=== PATIENT | female | born 1945 | race Caucasian/White ===

== ENCOUNTER → 2018-02-26 | Outpatient (CLI) | payer MEDICARE ==
--- NOTE | 2018-02-27 15:09 | MM ---
Reason for exam: screening (asymptomatic). Last mammogram was performed 3 years and 2 months ago. History: Patient is postmenopausal and has history of endometrial cancer at age 59. Family history of breast cancer in aunt at age 50. Physical Findings: A clinical breast exam by your physician is recommended on an annual basis and results should be correlated with mammographic findings. MG 3D Screening Mammo W/Cad Bilateral CC and MLO view(s) were taken. Prior study comparison: January 03, 2015, bilateral MG screening mammo w CAD. April 03, 2013, mammogram, performed at [facility]. The breast tissue is heterogeneously dense. This may lower the sensitivity of mammography. There is no discrete abnormality. No significant changes when compared with prior studies. ASSESSMENT: Negative, BI-RAD 1 RECOMMENDATION: Routine screening mammogram of both breasts in 1 year.
== END | disposition home or self-care (01) ==
LOC: RADMAMWWP 13:28
PROVIDERS: ATTEND Family Medicine
DX: Z12.31 Encounter for screening mammogram for malignant neoplasm of breast (principal)
CPT/HCPCS: 77063; 77067

== ENCOUNTER → 2019-03-04 | Outpatient (CLI) | payer MEDICARE ==
--- NOTE | 2019-03-04 16:56 | BD ---
EXAMINATION TYPE: Axial Bone Density DATE OF EXAM: 03/04/2019 COMPARISON: NONE CLINICAL HISTORY: Screening for osteoporosis Height: 66 Weight: 172.3 FRAX RISK QUESTIONS: Alcohol (3 or more units per day): no Family History (Parent hip fracture): no Glucocorticoids (More than 3mos): no (Ex: prednisone, prednisolone, methylprednisolone, dexamethasone, and hydrocortisone). History of Fracture in Adulthood: no Secondary Osteoporosis: 1. Type 1 Diabetes: no 2. Hyperthyroidism: no 3. Menopause before 45: no 4. Malnutrition: no 5. Chronic liver disease: no Rheumatoid Arthritis: no Current Tobacco Use: no RISK FACTORS HISTORY OF: Family History of Osteoporosis: no Active: yes Diet low in dairy products/other sources of calcium: yes Postmenopausal woman: age 49 MEDICATIONS: lithium, bupropion, omega guard, vitamins Additional History: EXAM MEASUREMENTS: Bone mineral densitometry was performed using the [employer] System. Bone mineral density as measured about the Lumbar spine is: ----- L1-L4(G/cm2): 1.499 T Score Values are as follows: ----- L2: 1.2 ----- L3: 4.0 ----- L4: 3.5 ----- L1-L4: 2.7 Bone mineral density : baseline Bone mineral density about the R hip (g/cm2): 1.036 Bone mineral density about the L hip (g/cm2): 1.097 T Score values are as follows: -----R Neck: 0.0 -----L Neck: 0.4 -----R Total: 0.7 -----L Total: 0.8 Bone mineral density : baseline IMPRESSION: Normal (Values between +1 and -1 indicate normal bone mass). Consider repeating this study in 5 year s or sooner if there is some new clinical indication. NOTE: T-SCORE=SD OF THE YOUNG ADULT MEAN.
--- NOTE | 2019-03-10 07:08 | MM ---
Reason for exam: screening (asymptomatic). Last mammogram was performed 1 year ago. History: Patient is postmenopausal and has history of endometrial cancer at age 59. Family history of breast cancer in aunt at age 50. Physical Findings: A clinical breast exam by your physician is recommended on an annual basis and results should be correlated with mammographic findings. MG 3D Screening Mammo W/Cad Bilateral CC and MLO view(s) were taken. Prior study comparison: February 26, 2018, bilateral MG 3d screening mammo w/cad. January 03, 2015, bilateral MG screening mammo w CAD. The breast tissue is heterogeneously dense. This may lower the sensitivity of mammography. No suspicious abnormality. No significant changes when compared with prior studies. ASSESSMENT: Negative, BI-RAD 1 RECOMMENDATION: Routine screening mammogram of both breasts in 1 year.
== END | disposition home or self-care (01) ==
LOC: RADMAMWWP 11:29
PROVIDERS: ATTEND Family Medicine
DX: Z12.31 Encounter for screening mammogram for malignant neoplasm of breast (principal); M89.9 Disorder of bone, unspecified
CPT/HCPCS: 77063; 77067; 77080

== ENCOUNTER → 2019-03-09 | Outpatient (CLI) | payer MEDICARE ==
--- NOTE | 2019-03-09 15:27 | MR ---
EXAMINATION TYPE: MR brain wo con DATE OF EXAM: 03/09/2019 COMPARISON: NONE HISTORY: Memory loss TECHNIQUE: Multiplanar, multisequence images of the brain and brainstem is performed without intravenous contras t. FINDINGS: Diffusion weighted images demonstrate no evidence of a recent infarct or other diffusion ab normality. There is no extra-axial fluid collection. Overall mild burden nonspecific white matter ch anges seen for the patient's age with multiple foci of T2/FLAIR hyperintensity scattered within the d eep white matter predominantly within a periventricular distribution with few juxtacortical foci seen in some infratentorial pontine lesions.. The ventricular system and cisternal spaces are normal in s ize and appearance other than slight asymmetry of size of the posterior horn of the lateral ventricle s, left greater than right. This is likely physiologic. The brain volume is age appropriate. Midline structures demonstrate normal morphology. The craniocervical junction appears within normal limits. The dural venous sinuses appear patent. Mild circumferential mucosal thickening is seen in th e right maxillary sinus and mild mucosal thickening is also present in the ethmoid sinuses. Remaining visualized paranasal sinuses and mastoid air cells are well aerated. The visualized sinuses are miguelito r and the globes are intact. IMPRESSION: 1. Symmetric supratentorial atrophy has no lobar predilection and is likely simply age related. 2. Mild burden nonspecific white matter change, given the distribution this is likely sequela of micr oangiopathy. Also there are small foci of gliosis within the christelle. 3. Mild paranasal sinus disease involving ethmoid and right maxillary sinus.
== END | disposition home or self-care (01) ==
LOC: RADMRIMAIN 11:22
PROVIDERS: ATTEND Psychiatry & Neurology Neurology
DX: G31.9 Degenerative disease of nervous system, unspecified (principal); R90.89 Other abnormal findings on diagnostic imaging of central nervous system
CPT/HCPCS: 70551

== ENCOUNTER → 2020-10-31 | Outpatient (CLI) | payer MEDICARE | END | disposition home or self-care (01) | LOC: LABWHC1 15:36 | PROVIDERS: ATTEND Family Medicine | DX: Z01.812 Encounter for preprocedural laboratory examination (principal); Z20.822 Contact with and (suspected) exposure to COVID-19 | CPT/HCPCS: U0003; C9803; U0005 ==

== ENCOUNTER → 2020-11-10 | Outpatient (CLI) | payer MEDICARE ==
--- NOTE | 2020-11-10 11:26 | US ---
EXAMINATION TYPE: US venous doppler duplex LE LT DATE OF EXAM: 11/10/2020 11:04 AM COMPARISON: NONE CLINICAL HISTORY: I80.9 PHLEBITIS AND THROMBOPHLEBITIS. Left knee pain, no h/o DVT SIDE PERFORMED: Left TECHNIQUE: The lower extremity deep venous system is examined utilizing real time linear array sonog shay with graded compression, doppler sonography and color-flow sonography. VESSELS IMAGED: Common Femoral Vein Deep Femoral Vein Greater Saphenous Vein * Femoral Vein Popliteal Vein Small Saphenous Vein * Proximal Calf Veins (* superficial vessels) Left Leg: Negative for DVT IMPRESSION: 1. No evidence of deep venous thrombosis in left lower extremity veins.
== END | disposition home or self-care (01) ==
LOC: RADUSWWP 10:30
PROVIDERS: ATTEND Orthopaedic Surgery
DX: I80.9 Phlebitis and thrombophlebitis of unspecified site (principal)

== ENCOUNTER → 2020-11-21 | Outpatient (CLI) | payer MEDICARE ==
[2020-11-21 18:50] LABS: HCT 41.5 % (37.2-46.3); HGB 13.4 g/dL (12.0-15.0); MCH 29.8 pg (27.0-32.0); MCHC 32.3 g/dL (32.0-37.0); MCV 92.2 fL (80.0-97.0); Mean Platelet Volume 9.7 fL (9.5-12.2); Platelet Count 256 X 10*3/uL (140-440); RDW 13.2 % (11.5-14.5); WBC 7.92 X 10*3/uL (4.50-10.00)
== END | disposition home or self-care (01) ==
LOC: LABWHC1 10:12
PROVIDERS: ATTEND Orthopaedic Surgery
DX: Z01.812 Encounter for preprocedural laboratory examination (principal); M95.8 Other specified acquired deformities of musculoskeletal system; M17.12 Unilateral primary osteoarthritis, left knee
CPT/HCPCS: 36415; 85027; 87070

== ENCOUNTER → 2020-12-02 | Outpatient (CLI) | payer MEDICARE ==
--- NOTE | 2020-12-06 09:32 | MM ---
Reason for exam: screening (asymptomatic). Last mammogram was performed 1 year and 9 months ago. History: Patient is postmenopausal and has history of endometrial cancer at age 59. Family history of breast cancer in aunt at age 50. Physical Findings: A clinical breast exam by your physician is recommended on an annual basis and results should be correlated with mammographic findings. MG 3D Screening Mammo W/Cad Bilateral CC and MLO view(s) were taken. Prior study comparison: March 04, 2019, bilateral MG 3d screening mammo w/cad. February 26, 2018, bilateral MG 3d screening mammo w/cad. The breast tissue is heterogeneously dense. This may lower the sensitivity of mammography. ASSESSMENT: Benign, BI-RAD 2 RECOMMENDATION: Routine screening mammogram of both breasts in 1 year.
== END | disposition home or self-care (01) ==
LOC: RADMAMWWP 10:40
PROVIDERS: ATTEND Family Medicine
DX: Z12.31 Encounter for screening mammogram for malignant neoplasm of breast (principal); Z78.0 Asymptomatic menopausal state; Z80.3 Family history of malignant neoplasm of breast
CPT/HCPCS: 77063; 77067

== ENCOUNTER → 2020-12-02 | Outpatient (CLI) | payer MEDICARE ==
[~2020-12-02] MED LIST: REGADENOSON 0.4 MG/5 ML SYRINGE IV PRN
--- NOTE | 2020-12-02 11:25 | P.STRESS ---
- Stress Test Note Stress Test Results/Findings: Exam Performed: NM stress lexiscan cardiolite Exam Date: 12/02/20 Reason for Exam: Chest Pain Height: 5 ft 6 in Weight: 76.204 kg Protocol: Lexiscan Stage: na Duration of Exercise: na Resting Heart Rate: 56 Resting Blood Pressure: 142/81 Maximum Achieved Heart Rate: 92 Maximum Achieved Blood Pressure: 143/75 85% PMHR: 122 100% PMHR: 144 METS: na Technologist Comment: Stress Test Results/Findings: At baseline EKG showed normal sinus rhythm, normal axis, no significant ST or T wave abnormalities. Patient recieved IV infusion of Lexiscan 0.4mg and at peak infusion EKG showed no significant change from baseline. Conclusions: 1. Normal EKG response to Lexiscan infusion 2. Nuclear imaging to be reported separately.
--- NOTE | 2020-12-02 11:41 | NM ---
EXAMINATION TYPE: NM stress lexiscan cardiolite DATE OF EXAM: 12/02/2020 COMPARISON: NONE HISTORY: Abnormal EKG, R 94.31 TECHNIQUE: After the intravenous administration of 9.44 mCi Tc 99m Sestamibi - Cardiolite resting SP ECT images acquired 79 minutes post injection. The patient received 0.4mg Lexiscan, 24.3 mCi Tc 99m Sestamibi - Stress images obtained [address] injection FINDINGS: Review of stress and rest SPECT images demonstrates decreased uptake along the anteroapical left vent ricle extending towards the septum on stress as compared to rest images. Gated analysis shows normal wall motion with an estimated left ventricular ejection fraction of 67 %. IMPRESSION: Pharmacologically induced left ventricular myocardial ischemia, consider echocardiographic evaluation of elevated ejection fraction. A Yellow level critical message alert has been initiated for Rabia Ponce MD via the [employer] Critical Results System on 12/02/2020 11:39 AM. This message alert has been sent to Rabia Monson MD via the preferences provided by the clinician for the receipt of Radiology Critical Findings . Message ID [id number].
== END | disposition home or self-care (01) ==
LOC: RADNMMAIN 07:42
PROVIDERS: ATTEND Family Medicine
DX: I25.9 Chronic ischemic heart disease, unspecified (principal); R07.9 Chest pain, unspecified
CPT/HCPCS: 93017; 78452; A9500; J2785

== ENCOUNTER → 2020-12-08 | Outpatient (CLI) | payer MEDICARE ==
[2020-12-08 11:24] LABS: HCT 44.1 % (34.0-46.0); HGB 14.1 gm/dL (11.4-16.0); MCV 90.8 fL (80.0-100.0); Mean Platelet Volume 6.8; Platelet Count 221 k/uL (150-450); RBC 4.85 m/uL (3.80-5.40); RDW 13.6 % (11.5-15.5); WBC 7.4 k/uL (3.8-10.6)
[2020-12-08 11:49] LABS: Potassium 4.8 mmol/L (3.5-5.1)
== END | disposition home or self-care (01) ==
LOC: LABPAT 10:18
PROVIDERS: ATTEND Internal Medicine Cardiovascular Disease
DX: Z01.812 Encounter for preprocedural laboratory examination (principal); R93.1 Abnormal findings on diagnostic imaging of heart and coronary circulation
CPT/HCPCS: 36415; 80051; 82565; 84520; 85027

== ENCOUNTER 2020-12-09 | Day surgery (SDC) | payer MEDICARE | END 2020-12-09 13:57 | disposition home or self-care (01) | CPT/HCPCS: 93458; 93567; 87635; C1769 ×3; C1894; J2250; J2001; J3010; Q9967 ==

== ENCOUNTER → 2021-04-05 | Outpatient (CLI) | payer MEDICARE ==
[2021-04-05 18:53] LABS: Appearance,BF Hazy; Color,BF Yellow; Nucleated Cells, Body Fluid 20 /uL; RBC, Body Fluid 4180 /uL
[2021-04-06 01:37] LABS: HCT 42.2 % (37.2-46.3); HGB 13.5 g/dL (12.0-15.0); MCH 29.2 pg (27.0-32.0); MCV 91.1 fL (80.0-97.0); Mean Platelet Volume 10.2 fL (9.5-12.2); Platelet Count 268 X 10*3/uL (140-440); RBC 4.63 X 10*6/uL (4.10-5.20); RDW 13.4 % (11.5-14.5); WBC 10.39 X 10*3/uL (4.50-10.00)
[2021-04-06 03:30] LABS: Erythrocyte Sedimentation Rate 7 mm/Hr (0-30)
[2021-04-06 06:59] LABS: Streptolysin O Ab(ASO) 79 IU/L (0-200)
[2021-04-06 08:25] LABS: C Reactive Protein <0.30 mg/dL (0.00-0.80); Rheumatoid Factor, Qnt <10 IU/mL (0-15)
[2021-04-06 11:25] LABS: HLA B27 NEGATIVE
== END | disposition home or self-care (01) ==
LOC: LABWHC1 16:22
PROVIDERS: ATTEND Physician Assistant
DX: Z47.1 Aftercare following joint replacement surgery (principal); S76.112D Strain of left quadriceps muscle, fascia and tendon, subsequent encounter; M25.562 Pain in left knee; X58.XXXD Exposure to other specified factors, subsequent encounter; Z96.652 Presence of left artificial knee joint
CPT/HCPCS: 36415; 83520; 84443; 85027; 85652; 86038; 86060; 86140; 86431; 86618; 86812; 87070; 87075; 87205; 89050; 89060

== ENCOUNTER → 2021-10-12 | Outpatient (CLI) | payer MEDICARE ==
--- NOTE | 2021-10-12 12:19 | CONS ---
CONSULTATION DATE OF SERVICE: 10/12/2021 76-year-old lady has been evaluated in [facility] for difficulties falling asleep and multiple awakenings from sleep. HISTORY OF PRESENT ILLNESS SLEEP-WAKE EVALUATION: SLEEP SCHEDULE: Patient's usual sleep schedule from 11 to 11:30 p.m. until 7/9:00 am. She has difficulties falling asleep. Tried different medications for that, but not very successful and during the night, she wakes up. In the middle of the night, has 4 episodes of nocturia. After awakenings, has difficulties initiating sleep again. No TV in bedroom. She usually sleeps on the side position. According to her family, she snores. In the morning, she wakes up tired. She has difficulties to pay attention. Browning Sleepiness Scale is 6. She does not take any naps. No history of hypnagogic hallucinations, sleep paralysis or cataplexy. PAST MEDICAL HISTORY: Positive for depression. PAST SURGICAL HISTORY: Hysterectomy, surgery for rupture of ovary. CURRENT MEDICATIONS: Gabapentin 100 mg once a day, Bandon 300 mg twice a day, Meloxicam 15 mg once a day. Temazepam. FAMILY HISTORY: Hypertension, sleep apnea, thyroid problems. REVIEW OF SYSTEMS: Difficulty initiating sleep, multiple awakenings from sleep with difficulties sleep. PHYSICAL EXAMINATION: GENERAL: lady without distress. BP 131/77, HR 62, RR 16. Height 5 feet 5 inches 3/4, weight 159.6, temperature 97.1, oxygen saturation at room air 99%. Oropharynx: Low position of soft palate, Mallampati 3-4. NECK 14-1/2 inch in circumference. Neck: Supple, no JVD. Thyroid is not palpable. LUNGS: Clear to percussion and to auscultation. Good air exchange. No wheezing or rhonchi. HEART: S1, S2 regular. No murmurs, gallops, or rubs. ABDOMEN: Soft and nontender. Bowel sounds are present. No organomegaly appreciated. EXTREMITIES: No clubbing or cyanosis. MARKET DEVELOPMENT MANAGER: Awake, alert, and oriented X3. Cranial nerves 2 to 7 intact. There is no fasciculation or atrophy. noted. No focal deficits observed. IMPRESSION: 1. Snoring, multiple awakenings from sleep, low position of soft palate, Mallampati 3- 4. Possible obstructive sleep apnea-hypopnea syndrome. 2. Insomnia, possibly psychophysiological, could be secondary to depression. 3. Possibly periodic limb movements during the sleep. 4. Depression. 5. Status post hysterectomy. 6. Status post surgery for rupture of ovary. PLAN: 1. I discussed with the patient psychological techniques for treatment of insomnia including stimulus control, paradoxical intention, worry time, no watching clock in bedroom. The patient promised to follow recommendations. 2. Polysomnogram for evaluation of patient breathing during sleep and also to check for possibly leg movements. 3. Sleep hygiene regular time in bed for 7.5 hours. 4. Precautions related to driving. No driving if feeling sleepiness. 5. Following plan after reviewing results of sleep study. Thank you very much for referring this patient for consultation. Sincerely, Harvey Mcintosh MD, PhD, FAASM Diplomat of [place] [employer] Sleep Medicine Board of [place] [employer] Back Strip Machine Operator of [facility] [place] MMODL / FAISALN: [id number] /
== END ==
LOC: SLEEP 10:51
PROVIDERS: ATTEND Internal Medicine
DX: G47.00 Insomnia, unspecified (principal); R06.83 Snoring; F32.A Depression, unspecified; Z90.710 Acquired absence of both cervix and uterus; Z98.890 Other specified postprocedural states
CPT/HCPCS: 99211

== ENCOUNTER → 2021-12-12 | Outpatient (CLI) | payer MEDICARE ==
--- NOTE | 2021-12-12 17:44 | BD ---
EXAMINATION TYPE: Axial Bone Density DATE OF EXAM: 12/12/2021 CLINICAL HISTORY: 76 years year old Female. ICD-10 CODE: Z78.0 ASYMPTOMATIC MENOPAUSAL STATE Height: 5 FT 5 IN Weight: 161 FRAX RISK QUESTIONS: Alcohol (3 or more units per day): NO Family History (Parent hip fracture): NO Glucocorticoids (More than 3mos): NO (Ex: prednisone, prednisolone, methylprednisolone, dexamethasone, and hydrocortisone). History of Fracture in Adulthood: NO Secondary Osteoporosis: 1. Type 1 Diabetes: NO 2. Hyperthyroidism: NO 3. Menopause before 45: NO 4. Malnutrition: NO 5. Chronic liver disease: NO Rheumatoid Arthritis: NO Current Tobacco Use: NO RISK FACTORS HISTORY OF: Surgery to Spine/Hip(right/left)/Wrist (right/left): NO Family History of Osteoporosis: NO Active: YES Diet low in dairy products/other sources of calcium: NO Postmenopausal woman: YES Take estrogen and/or progesterone medications: NO Lost more than 2 inches in height since high school: NO Frequent falls: NO Poor Health: GOOD Hyperparathyroidism: NO Adrenal Insufficiency: NO MEDICATIONS: Additional Medications: LITHIUM, DIAZEPAM ,GABAPENTAN , Additional History: EXAM MEASUREMENTS: Bone mineral densitometry was performed using the [employer] System. Bone mineral density as measured about the Lumbar spine is: ----- L1-L4(G/cm2): 1.499 T Score Values are as follows: ----- L1: 1.2 ----- L2: 2.4 ----- L3: 3.8 ----- L4: 3.2 ----- L1-L4: 2.7 Bone mineral density has: INCREASED 1.7 % since study of: 2019 Bone mineral density about the R hip (g/cm2): 1.021 Bone mineral density about the L hip (g/cm2): 1.051 T Score values are as follows: -----R Neck: -0.1 -----L Neck: 0.1 -----R Total: 0.7 -----L Total: 0.5 Bone mineral density has: DECREASED -2.1 % since study of: 2019 FRAX%s: The graph provided illustrates a 8.4 % chance for a major osteoporotic fx and a 0.9 % chance for the hips probability for fx in 10 years time. IMPRESSION: Normal (Values between +1 and -1 indicate normal bone mass). Consider repeating this study in 5 year s or sooner if there is some new clinical indication. NOTE: T-SCORE=SD OF THE YOUNG ADULT MEAN.
--- NOTE | 2021-12-13 14:53 | MM ---
Reason for Exam: Screening (asymptomatic). Last mammogram was performed 1 year(s) and 1 month(s) ago. Patient History: Menarche at age 12. First Full-Term at age 24. Left ovary removed at age 59. Right ovary removed at age 59. Hysterectomy at age 59. Postmenopausal. Endometrial cancer, age 59. Sister had breast cancer, age 50. Risk Values: Kelsey 5 year model risk: 3.4%. NCI Lifetime model risk: 6.5%. Prior Study Comparison: 02/26/2018 Bilateral Screening Mammogram, [facility]. 03/04/2019 Bilateral Screening Mammogram, [facility]. 12/02/2020 Bilateral Screening Mammogram, [facility]. Tissue Density: The breast tissue is heterogeneously dense. This may lower the sensitivity of mammography. Findings: Analyzed By CAD. Benign-appearing bilateral axillary lymph nodes are redemonstrated. There is no suspicious group of microcalcifications or new suspicious mass in either breast. Overall Assessment: Negative, BI-RAD 1 Management: Screening Mammogram of both breasts in 1 year. A clinical breast exam by your physician is recommended on an annual basis and results should be correlated with mammographic findings. Electronically signed and approved by: Timi Tinajero M.D.
== END | disposition home or self-care (01) ==
LOC: RADMAMWWP 16:05
PROVIDERS: ATTEND Family Medicine
DX: Z12.31 Encounter for screening mammogram for malignant neoplasm of breast (principal); Z78.0 Asymptomatic menopausal state; Z80.3 Family history of malignant neoplasm of breast
CPT/HCPCS: 77063; 77067; 77080

== ENCOUNTER 2022-02-19 14:34 | Observation (INO) | payer MEDICARE ==
--- NOTE | 2022-02-19 15:12 | ED ---
General Adult HPI - General Chief complaint: Neuro Symptoms/Deficit Stated complaint: PCP Sent, Possible stroke Time Seen by Provider: 02/19/22 15:05 Source: patient Mode of arrival: ambulatory Limitations: no limitations - History of Present Illness Initial comments: Dictation was produced using [employer] dictation software. please excuse any grammatical, word or spelling errors. Chief Complaint: 76-year-old female presents emergency Department for slurred speech History of Present Illness: 76-year-old female she presents to the emergency department for slurred speech. Patient states that she agrees. Her history of present illness obtained from states that she woke up normal at 9 AM. At 10:00 PM patient is noted have slurred speech. She was able to ride her bike to her dentist office. Dentist office called states that patient has been behaving strangely also displaying signs of stroke at the office. Since this morning patient has been having intermittent bouts of slurred speech. She has not been noted to be weak or insensate in any of her extremities. Patient has no history of stroke. She has no past medical history. Patient denies any numbness distally paresthesias to the arms or legs. The ROS documented in this emergency department record has been reviewed and confirmed by me. Those systems with pertinent positive or negative responses have been documented in the HPI. All other systems are other negative and/or noncontributory. PHYSICAL EXAM: General Impression: Alert and oriented x3, not in acute distress HEENT: Normocephalic atraumatic, extra-ocular movements intact, pupils equal and reactive to light bilaterally, mucous membranes moist. Cardiovascular: Heart regular rate and rhythm Chest: Able to complete full sentences, no retractions, no tachypnea Abdomen: abdomen soft, non-tender, non-distended, no organomegaly Musculoskeletal: Pulses present and equal in all extremities, no peripheral edema Motor: no focal deficits noted Neurological: CN II-XII grossly intact, no focal motor or sensory deficits noted, NIH 0 Skin: Intact with no visualized rashes Psych: Normal affect and mood ED course: 76-year-old female presenting to the emergency department with clinical presentation consistent for transient ischemic attack. Patient's NIH at bedside is 0.. Vital signs upon arrival are within acceptable limits. Laboratory evaluation obtained. CBC, coag panel, log panel is within acceptable limits. Computed tomography scan of brain is unremarkable. Patient given dose of aspirin. Patient be admitted to floor with consultation to neurology. Patient admitted to Dr. Garza. EKG interpretation: Ventricular rate 64, sinus rhythm,. Interval to 10, Q 70, QTc 385. No TX prolongation, no QTC prolongation, no ST or T-wave changes noted. No old EKG for comparison. Overall, this EKG is unremarkable - Related Data Home Medications Medication Instructions Recorded Confirmed Beclomethasone Dip 80 Mcg/Puff 1 puff INHALATION DAILY PRN 12/08/20 12/08/20 [Qvar 80 mcg] Calcium Carbonate [Calcium] 600 mg PO DAILY 12/08/20 12/09/20 Cannabidiol (Cbd) [Epidiolex] 0 mg PO DAILY 12/08/20 12/09/20 [place] Carbonate 300 mg PO BID 12/08/20 12/09/20 [place]-3 Fatty Acids [Florence-3] 1,000 mg PO DAILY 12/08/20 12/09/20 Vitamin B Complex 1 each PO DAILY 12/08/20 12/09/20 Allergies Allergy/AdvReac Type Severity Reaction Status Date / Time No Known Allergies Allergy Verified 02/19/22 15:00 Review of Systems ROS Statement: Those systems with pertinent positive or pertinent negative responses have been documented in the HPI. ROS Other: All systems not noted in ROS Statement are negative. Past Medical History Past Medical History: Asthma History of Any Multi-Drug Resistant Organisms: None Reported Past Surgical History: Tubal Ligation Additional Past Surgical History / Comment(s): ovary Past Psychological History: Bipolar Smoking Status: Never smoker Past Alcohol Use History: None Reported Past Drug Use History: None Reported General Exam Limitations: no limitations Course Vital Signs 02/19/22 14:55 Temperature 98.6 F Pulse Rate 65 Respiratory 16 Rate Blood Pressure 129/76 O2 Sat by Pulse 98 Oximetry Medical Decision Making - Lab Data Result diagrams: 02/19/22 15:13 02/19/22 15:13 Lab Results 02/19/22 02/19/22 02/19/22 Range/Units 15:13 15:13 15:13 WBC 8.5 (3.8-10.6) k/uL RBC 4.45 (3.80-5.40) m/uL Hgb 13.5 (11.4-16.0) gm/dL Hct 41.3 (34.0-46.0) % MCV 92.9 (80.0-100.0) fL MCH 30.4 (25.0-35.0) pg MCHC 32.7 (31.0-37.0) g/dL RDW 13.2 (11.5-15.5) % Plt Count 225 (150-450) k/uL MPV 7.3 Neutrophils % 71 % Lymphocytes % 19 % Monocytes % 6 % Eosinophils % 3 % Basophils % 1 % Neutrophils # 6.0 (1.3-7.7) k/uL Lymphocytes # 1.6 (1.0-4.8) k/uL Monocytes # 0.5 (0-1.0) k/uL Eosinophils # 0.3 (0-0.7) k/uL Basophils # 0.0 (0-0.2) k/uL PT 10.3 (9.0-12.0) sec INR 0.9 (<1.2) APTT 24.7 (22.0-30.0) sec Sodium 137 (137-145) mmol/L Potassium 4.1 (3.5-5.1) mmol/L Chloride 104 (98-107) mmol/L Carbon Dioxide 21 L (22-30) mmol/L Anion Gap 12 mmol/L BUN 18 H (7-17) mg/dL Creatinine 0.86 (0.52-1.04) mg/dL Est GFR (CKD-EPI)AfAm 76 (>60 ml/min/1.73 sqM) Est GFR (CKD-EPI)NonAf 66 (>60 ml/min/1.73 sqM) Glucose 152 H (74-99) mg/dL Calcium 9.7 (8.4-10.2) mg/dL Total Bilirubin 0.4 (0.2-1.3) mg/dL AST 27 (14-36) U/L ALT 25 (4-34) U/L Alkaline Phosphatase 74 (38-126) U/L Total Protein 6.4 (6.3-8.2) g/dL Albumin 4.4 (3.5-5.0) g/dL Disposition Clinical Impression: TIA (transient ischemic attack) Disposition: ADMITTED IP TO THIS HOSP Condition: Fair Referrals: Rabia Ponce MD [Primary Care Provider] - 1-2 days Decision Time: 16:43
[2022-02-19 15:25] LABS: Basophils % (A) 1 %; Eosinophils # (A) 0.3 k/uL (0-0.7); Eosinophils % (A) 3 %; HCT 41.3 % (34.0-46.0); HGB 13.5 gm/dL (11.4-16.0); Lymphocytes # (A) 1.6 k/uL (1.0-4.8); Lymphocytes % (A) 19 %; MCH 30.4 pg (25.0-35.0); MCHC 32.7 g/dL (31.0-37.0); MCV 92.9 fL (80.0-100.0); Mean Platelet Volume 7.3; Monocytes # (A) 0.5 k/uL (0-1.0); Monocytes % (A) 6 %; Neutrophils % (A) 71 %; Platelet Count 225 k/uL (150-450); RBC 4.45 m/uL (3.80-5.40); RDW 13.2 % (11.5-15.5); WBC 8.5 k/uL (3.8-10.6)
[2022-02-19 15:46] LABS: INR 0.9 (<1.2); Partial Thromboplastin Time 24.7 sec (22.0-30.0); Prothrombin Time 10.3 sec (9.0-12.0)
--- NOTE | 2022-02-19 15:46 | CT ---
EXAMINATION TYPE: CT brain wo con DATE OF EXAM: 02/19/2022 COMPARISON: None HISTORY: weakness, loss of balance, slurred speech CT DLP: 1153.4 mGycm Automated exposure control for dose reduction was used. FINDINGS: Moderate generalized degenerative change with faint low-attenuation white matter which is not changes of chronic sinusitis are noted. Craniocervical junction is maintained. Orbits are symmetric. Partial ly empty sella measures. No evidence of acute hemorrhage or mass effect. No midline shift. IMPRESSION: DEGENERATIVE AND NONSPECIFIC WHITE MATTER CHANGE WITH NO DIAGNOSTIC EVIDENCE OF ACUTE HEMORRHAGE OR M ASS EFFECT. IF CONCERN FOR ACUTE ISCHEMIA CONSIDER FOLLOW-UP MRI.
[2022-02-19 16:10] LABS: Albumin 4.4 g/dL (3.5-5.0); Calcium 9.7 mg/dL (8.4-10.2); Potassium 4.1 mmol/L (3.5-5.1); Total Bilirubin 0.4 mg/dL (0.2-1.3); Total Protein 6.4 g/dL (6.3-8.2)
[2022-02-19] MEDS ORDERED: ASPIRIN 81 MG PO STA (16:13)
[2022-02-19] MEDS: SODIUM CHLORIDE 0.9% 1,000 ML IV SCH (18:01)
[2022-02-19] MEDS: LITHIUM CARBONATE 300 MG CAP PO SCH (20:44)
[2022-02-19] MEDS: GABAPENTIN 300 MG CAP PO SCH (20:44)
[2022-02-19] MEDS: TEMAZEPAM 30 MG CAP PO SCH (22:56)
[2022-02-20] MEDS ORDERED: ACETAMINOPHEN TAB 325 MG TAB PO STA (06:08)
[2022-02-20] MEDS ORDERED: ACETAMINOPHEN TAB 325 MG TAB PO PRN (06:08)
[2022-02-20] MEDS: ASPIRIN 81 MG PO SCH (09:16)
[2022-02-20] MEDS: CLOPIDOGREL 75 MG TAB PO SCH (09:16)
[2022-02-20 09:17] LABS: Chol/HDL Ratio 1.94 Ratio; LDL Cholesterol,Calculated 30.5 mg/dL (0.0-131.0)
--- NOTE | 2022-02-20 09:24 | P.CNNES ---
History of Present Illness Consult date: 02/20/22 Requesting physician: Tree Garduno Reason for Consult: TIA History of Present Illness: This is a 76-year-old woman who presented to the emergency department on 02/19/2022 for slurred speech. Patient woke up around 9 AM on 02/19/2022 and the was at normal state but are round 10 AM patient is noted to have some slurre d speech but did not make much of it. The patient she rode her bike to her dentist office and he felt that the patient felt off. While riding the bike she was swirling side to side on bike and felt was due to the books she had (which she wanted to return to library). As result she threw the books on the floor. She continue riding on her bike and did not know how she got to her dentist office. She felt very off and not herself. She denies any focal weakness, numbness, visual disturbance. Per ED team, her dentist felt she was displaying signs of stroke at the office. She denies of any recent fevers, sick contacts. Denies of headache but feels her head continues to be foggy. She denies of any further slurring of speech. She denies of any urinary or bowel incontinence or tongue bite. Denies of any jerking of extremities that was notified. Denies history of stroke or seizures. She is not on aspirin or any other antiplatelets or anticoagulation. She socially drinks alcohol. Otherwise denies tobacco use or illicit drug use. Some other workup in our ED facility consisted of: CT head is unremarkable. It's reported as degenerative and nonspecific white matter changes with no diagnostic evidence of acute hemorrhagic or mass effect. Of concern for acute ischemia consider follow-up MRI. I personally reviewed the CT head and I agree that there is no acute or subacute ischemia and there is no typical hemorrhage. NIH stroke scale in the ED was 0. CBC with differential is unremarkable Initial serum glucose is 152. [place] is 0.8 which is considered therapeutic range No IV TPA since the symptoms resolved on presentation. And the risk outweighed the benefits. Review of Systems Review of system: The 12 point system was reviewed and apparent positive and negative per HPI. Past Medical History Past Medical History: Asthma History of Any Multi-Drug Resistant Organisms: None Reported Past Surgical History: Tubal Ligation Additional Past Surgical History / Comment(s): ovary Past Psychological History: Bipolar Smoking Status: Never smoker Past Alcohol Use History: None Reported Past Drug Use History: None Reported Medications and Allergies Home Medications Medication Instructions Recorded Confirmed Type [place] Carbonate 300 mg PO BID 12/08/20 02/19/22 History Amoxicillin 2,000 mg PO ONCE PRN 02/19/22 02/19/22 History Cariprazine HCl [Vraylar] 1.5 mg PO DAILY 02/19/22 02/19/22 History Gabapentin 300 mg PO HS 02/19/22 02/19/22 History Temazepam [Restoril] 30 mg PO HS 02/19/22 02/19/22 History Allergies Allergy/AdvReac Type Severity Reaction Status Date / Time No Known Allergies Allergy Verified 02/19/22 17:26 Physical Examination - Vital Signs Vital Signs: Vital Signs Temp Pulse Pulse Resp BP BP Pulse Ox 02/20/22 01:27 97.6 F 68 18 120/84 98 02/19/22 22:00 97.9 F 59 L 15 137/74 97 02/19/22 21:00 58 L 16 133/72 97 02/19/22 18:15 52 L 18 143/77 97 02/19/22 17:00 50 L 16 143/75 97 02/19/22 16:15 51 L 16 139/81 97 02/19/22 16:00 56 L 20 125/74 98 02/19/22 15:45 54 L 24 140/78 98 02/19/22 15:30 55 L 20 141/72 99 02/19/22 15:16 59 L 20 123/90 99 02/19/22 14:55 98.6 F 65 16 129/76 98 Intake and Output 02/19/22 02/20/22 02/20/22 22:59 06:59 14:59 Other: # Voids 2 GENERAL: The patient is lying in bed and is not in acute distress. CHEST: The heart rate is regular rate rhythm. No murmurs to auscultation. No carotid bruit bilaterally. LUNG: Clear to auscultation bilaterally no wheezing noted throughout. Not labored breathing. ABDOMEN/GI: Bowel sounds present in all 4 quadrants. No tenderness to palpation throughout. NEUROLOGICAL: Higher mental function: The patient is awake, alert, oriented to self, place and time. Patient is following commands. No aphasia and no neglect. Cranial nerves: The pupils are round, equal and reactive to light and accommodation. Visual leija are full to confrontation throughout. Extraocular movement is intact no nystagmus is noted. Facial sensation is normal to touch throughout. The facial strength is normal throughout. Hearing is decreased moderately bilaterally to hand rub (does not have hearing aids). Tongue is midline and moved [id number] without any difficulty. No dysarthria is noted. Shoulder shrug is normal bilaterally. Motor: The strength is 5 over 5 throughout. Normal tone and bulk. Cerebellum: Normal finger to nose heel to amaya bilaterally. Sensation: Sensation is normal to touch throughout. Reflexes (right/left): 2+ throughout. Plantars are downgoing bilaterally. Results - Laboratory Findings CBC and BMP: 02/19/22 15:13 02/19/22 15:13 Abnormal Lab Findings: Abnormal Labs 02/19/22 15:13 Carbon Dioxide 21 L BUN 18 H Glucose 152 H Assessment and Plan Assessment: Acute transient dysarthria, confusion seems probable due to transient ischemic attack. Transient encephalopathy seems probable due to TIA. From history did not seem seizure but cannot exclude. Bipolar Plan: I ordered MRI Brain w/ and w/o, 2-D echo, carotid duplex, TSH, hemoglobin A1c. Ordered routine EEG. I will not start the patient on seizure medications unless there is epileptiform discharges or seizure on the EEG. Ordered COVID-19 PCR. Lipid panel is ordered and pending. Patient was given aspirin 324 mg once in the ED. I start the patient on aspirin 81 and Plavix 75 for 21 days and after 21 days stop Plavix but continue aspirin indefinitely and I started the patient on Lipitor 20 mg daily at bedtime for secondary stroke prophylaxis. Continue neuro checks. Continue cardiac monitoring PT OT and FLOOR ATTENDANT are consulted We'll defer the rest of the medical management to primary team. For DVT prophylaxis start the patient on subcu heparin 5000 units every 8 hours The plan is discussed with the patient. Thank you for the consultation. Monster Reza M.D. Hospitalist Time with Patient: Greater than 30
--- NOTE | 2022-02-20 10:09 | US ---
EXAMINATION TYPE: US carotid duplex BILAT DATE OF EXAM: 02/20/2022 COMPARISON: NONE CLINICAL HISTORY: stroke. Episode of slurred speech, disorientation, imbalance. TECHNIQUE: Carotid duplex ultrasound examination. Indirect Doppler criteria was utilized. FINDINGS: EXAM MEASUREMENTS: RIGHT: Peak Systolic Velocity (PSV) cm/sec ----- Right CCA: 72.6 ----- Right ICA: 63.7 ----- Right ECA: 60.1 ICA/CCA ratio: 0.9 RIGHT: End Diastole cm/sec ----- Right CCA: 15.0 ----- Right ICA: 20.8 ----- Right ECA: 3.0 LEFT: Peak Systolic Velocity (PSV) cm/sec ----- Left CCA: 70.2 ----- Left ICA: 56.4 ----- Left ECA: 50.3 ICA/CCA ratio: 0.8 LEFT: End Diastole cm/sec ----- Left CCA: 16.2 ----- Left ICA: 14.8 ----- Left ECA: 4.2 VERTEBRALS (direction of flow): Right Vertebral: Antegrade Left Vertebral: Antegrade Rhythm: Normal SIGN ERECTOR NOTES: No significant stenosis seen. No elevated velocities IMPRESSION: No significant hemodynamic stenosis as visualized Criteria for Assigning % of Stenosis / Diameter reduction (Estimation based on the indirect measurements of the internal carotid artery velocities (ICA PSV). 1. Normal (no stenosis)=ICA PSV < 125 cm/s: ratio < 2.0: ICA EDV<40 cm/s. 2. Less than 50% stenosis=ICA PSV < 125 cm/s: ratio < 2.0: ICA EDV<40 cm/s. 3. 50 to 69% stenosis=ICA PSV of 125 to 230 cm/s: ration 2.0 ? 4.0: ICA EDV 40-100 cm/s. 4. Greater than 70% stenosis to near occlusion= ICA PSV > 230 cm/s: ratio > 4.0: ICA EDV > 100 cm/s. 5. Near occlusion= ICA PSV velocities may be low or undetectable: variable ratio and ICA EDV. 6. Total occlusion=unable to detect flow.
[2022-02-20] MEDS: LITHIUM CARBONATE 300 MG CAP PO SCH ×2 (11:31→21:58)
[2022-02-20] MEDS: SODIUM CHLORIDE 0.9% 1,000 ML IV SCH (16:05)
[2022-02-20] MEDS: HEPARIN SODIUM,PORCINE/PF 5,000 UNIT/0.5 ML SYRINGE SQ SCH (16:05)
--- NOTE | 2022-02-20 17:27 | P.HPIM ---
History of Present Illness H&P Date: 02/20/22 Karis Mueller, is a 76-year-old female who presented to [facility] emergency room with a chief complaint of confusion and slurred speech Patient stated that she left her home riding on her bicycle she went to her dentist, after her dentist appointment the staff noticed that she was not feeling well they called her to come and pick her up, he noticed that she was slurring her speech and that she was confused he took her to Dr. Ponce's office who advised them to go to emergency room. She was evaluated in the emergency room vital examination on presentation revealed a temperature of 98.6 pulse 65 respiration 16 blood pressure 129/76 pulse ox 98% on room air Laboratory data reveals a white blood count of 8.5 hemoglobin 13.5 platelet count 225 sodium 137 potassium 4.1 chloride 104 CO2 21 BUN 18 creatinine 0.86 A1c 5.6 Testing in the emergency room revealed EKG revealed sinus rhythm with sinus arrhythmia and first-degree AV block computed tomography scan done in the emergency room without contrast revealed nonspecific white matter changes without diagnostic evidence of acute hemorrhage or mass affect. Patient was admitted to medical floor for further evaluation and treatment, neurology consultation was requested Patient also stated that she was having episodes of chest pain on and off for the last few weeks. Past Medical History Past Medical History: Asthma History of Any Multi-Drug Resistant Organisms: None Reported Past Surgical History: Tubal Ligation Additional Past Surgical History / Comment(s): ovary Past Psychological History: Bipolar Smoking Status: Never smoker Past Alcohol Use History: None Reported Past Drug Use History: None Reported Medications and Allergies Home Medications Medication Instructions Recorded Confirmed Type [place] Carbonate 300 mg PO BID 12/08/20 02/19/22 History Amoxicillin 2,000 mg PO ONCE PRN 02/19/22 02/19/22 History Cariprazine HCl [Vraylar] 1.5 mg PO DAILY 02/19/22 02/19/22 History Gabapentin 300 mg PO HS 02/19/22 02/19/22 History Temazepam [Restoril] 30 mg PO HS 02/19/22 02/19/22 History Allergies Allergy/AdvReac Type Severity Reaction Status Date / Time No Known Allergies Allergy Verified 02/19/22 17:26 Physical Exam Vitals: Vital Signs Temp Pulse Pulse Resp BP BP Pulse Ox 02/20/22 08:36 96 02/20/22 07:00 97.8 F 60 16 134/84 98 02/20/22 01:27 97.6 F 68 18 120/84 98 02/19/22 22:00 97.9 F 59 L 15 137/74 97 02/19/22 21:00 58 L 16 133/72 97 02/19/22 18:15 52 L 18 143/77 97 02/19/22 17:00 50 L 16 143/75 97 02/19/22 16:15 51 L 16 139/81 97 02/19/22 16:00 56 L 20 125/74 98 02/19/22 15:45 54 L 24 140/78 98 02/19/22 15:30 55 L 20 141/72 99 02/19/22 15:16 59 L 20 123/90 99 02/19/22 14:55 98.6 F 65 16 129/76 98 Intake and Output 02/19/22 02/20/22 02/20/22 22:59 06:59 14:59 Other: # Voids 2 In general patient is alert and oriented x 3 in no distress HEENT head normocephalic and atraumatic Neck is supple no JVD no goiter no lymphadenopathy no carotid bruit Chest examination is clear to auscultation no crackles no wheezing Cardiac exam reveals regular heart sounds S1 and S2 no gallops no murmurs Abdomen is soft nontender no organomegaly with normal bowel sounds Extremity exam reveals no edema no cyanosis or clubbing Neurological examination reveals no gross focal deficits, at this time there is no confusion and no slurred speech patient and her are stating that she is back to her baseline. Results CBC & Chem 7: 02/19/22 15:13 02/19/22 15:13 Labs: Abnormal Lab Results - Last 24 Hours (Table) 02/19/22 Range/Units 15:13 Carbon Dioxide 21 L (22-30) mmol/L BUN 18 H (7-17) mg/dL Glucose 152 H (74-99) mg/dL Assessment and Plan Plan: Episode of confusion and slurred speech, possibly related to transient ischemic attack Underlying history of depression Underlying history of sleep disturbance Underlying history of hypertension Underlying history of hyperlipidemia Episodes of chest pain over the last 2-3 weeks At this time patient is admitted to telemetry floor Neurology consultation was requested, echocardiogram and carotid Doppler were ordered Home medications reviewed and reordered Due to episodes of chest pain, cardiology consultation will be added For DVT prophylaxis subcu heparin, will follow closely
[2022-02-20] MEDS ORDERED: ATORVASTATIN 20 MG TAB PO SCH (21:00)
[2022-02-20] MEDS: GABAPENTIN 300 MG CAP PO SCH (21:58)
--- NOTE | 2022-02-21 00:19 | EEG ---
ELECTROENCEPHALOGRAM REPORT CLINICAL HISTORY: This is a 76-year-old woman, who presented to the emergency department because of a confusion episode. The video EEG is obtained to evaluate for seizure epileptiform activity. RELEVANT MEDICATION: Gabapentin. EEG TYPE: A routine 21-channel EEG is performed with video using the 10/20 electrode placement system. DESCRIPTION: Wakefulness and drowsiness are obtained. During awake state, the posterior- dominant rhythm consists of [id number] voltage of 10 hertz activity that is well modulated, well sustained. There is no physiological stage 2 sleep architecture. There is no focal slowing. INTERICTAL AND ICTAL: None. ACTIVATION PROCEDURES: Photic stimulation did not evoke a posterior driving response. There is no abnormality during the photic stimulation. Hyperventilation is not performed. CLINICAL INTERPRETATION: This is a normal routine EEG. There is no focal slowing, epileptiform discharge, or seizure on the EEG. Clinical correlation is recommended. FLAVIA / RICHARD: [id number] / MTDD
[2022-02-21] MEDS: HEPARIN SODIUM,PORCINE/PF 5,000 UNIT/0.5 ML SYRINGE SQ SCH ×2 (01:18→08:58)
[2022-02-21] MEDS: TEMAZEPAM 30 MG CAP PO SCH (01:30)
[2022-02-21] MEDS ORDERED: TEMAZEPAM 15 MG CAP PO SCH ×2 (01:33→21:00)
[2022-02-21 07:42] VITALS: RESP 16
[2022-02-21] MEDS: ASPIRIN 81 MG PO SCH (08:58)
[2022-02-21] MEDS: CLOPIDOGREL 75 MG TAB PO SCH (08:58)
[2022-02-21] MEDS: LITHIUM CARBONATE 300 MG CAP PO SCH (08:58)
[2022-02-21 10:37] LABS: Basophils # (A) 0.05 X 10*3/uL (0.00-0.10); Basophils % (A) 0.7 %; Eosinophils # (A) 0.28 X 10*3/uL (0.04-0.35); Eosinophils % (A) 3.8 %; HCT 38.1 % (37.2-46.3); HGB 12.6 g/dL (12.0-15.0); Immature Grans, Automated 0.3 %; Lymphocytes % (A) 21.9 %; MCH 29.8 pg (27.0-32.0); MCHC 33.1 g/dL (32.0-37.0); MCV 90.1 fL (80.0-97.0); Mean Platelet Volume 9.3 fL (9.5-12.2); Monocytes # (A) 0.62 X 10*3/uL (0.20-1.00); Monocytes % (A) 8.5 %; NRBC Per 100 WBC 0 /100 WBCS (0.0-0.0); Neutrophils # (A) 4.74 X 10*3/uL (1.80-7.70); Neutrophils % (A) 64.8 %; Platelet Count 229 X 10*3/uL (140-440); RBC 4.23 X 10*6/uL (4.10-5.20); RDW 13.4 % (11.5-14.5); WBC 7.31 X 10*3/uL (4.50-10.00)
--- NOTE | 2022-02-21 10:56 | P.PN ---
Subjective Progress Note Date: 02/21/22 The patient is seen at bedside and feels drastically better today compared to initial presentation. She stated for the past 6 month she has been having brain fog and feels having difficulty getting her words out. Her mother has history of Alzheimer's. Objective - Vital Signs Vital signs: Vital Signs Temp 97.9 F 02/21/22 07:00 Pulse 61 02/21/22 07:00 Resp 16 02/21/22 07:00 BP 99/50 02/21/22 07:00 Pulse Ox 97 02/21/22 07:00 FiO2 Intake & Output 02/20/22 02/21/22 02/21/22 18:59 06:59 18:59 Intake Total 118 Balance 118 Weight 74.389 kg Intake: Oral 118 Other: # Voids 1 2 # Bowel Movements 0 - Exam GENERAL: The patient is sitting in a recliner chair and is not in acute distress. NEUROLOGICAL: Higher mental function: The patient is awake, alert, oriented to self, place and time. Patient is following commands. No aphasia and no neglect. Cranial nerves: The pupils are round, equal and reactive to light and accommodation. Visual leija are full to confrontation throughout. Extraocular movement is intact no nystagmus is noted. Facial sensation is normal to touch throughout. The facial strength is normal throughout. Hearing is decreased mildly to moderately bilaterally to hand rub (hearing aids). Tongue is midline and moved [id number] without any difficulty. No dysarthria is noted. [place] shrug is normal bilaterally. Motor: The strength is 5 over 5 throughout. Normal tone and bulk. Cerebellum: Normal finger to nose heel to amaya bilaterally. Sensation: Sensation is normal to touch throughout. Reflexes (right/left): 2+ throughout. Plantars are downgoing bilaterally. Some other workup in our facility during this hospital visit consisted of: CT head is unremarkable. It's reported as degenerative and nonspecific white matter changes with no diagnostic evidence of acute hemorrhagic or mass effect. Of concern for acute ischemia consider follow-up MRI. I personally reviewed the CT head and I agree that there is no acute or subacute ischemia and there is no typical hemorrhage. [place] is 0.8 which is considered therapeutic range TSH: 2.920 HbA1c: 5.6 Lipid panel: Triglyceride of 92, cholesterol 101, LDL of 30, HDL 52. [place] virus PCR is not detected Carotid duplex is reported as no significant hemodynamic stenosis as visualized Routine EEG on 02/20/2022 is normal. There is no focal slowing, epileptiform discharges or seizure on EEG. - Labs CBC & Chem 7: 02/21/22 06:36 02/19/22 15:13 Labs: Abnormal Lab Results - Last 24 Hours (Table) 02/21/22 Range/Units 06:36 MPV 9.3 L (9.5-12.2) fL Assessment and Plan Assessment: Acute transient dysarthria, confusion seems probable due to transient ischemic attack. History of brain fog and difficulty getting her words out for the past 6 month: Possibly due to cognitive impairment / early onset dementia Bipolar Family history of Alzheimer's dementia Plan: Pending MRI Brain w/ and w/o, 2-D echo. Routine EEG is normal.. Continue aspirin 81 and Plavix 75 for 21 days and after 21 days stop Plavix but continue aspirin indefinitely and I started the patient on Lipitor 20 mg daily at bedtime for secondary stroke prophylaxis. Recommend detailed cognitive assessment/neurospych evaluation for her memory issues as outpatient and follow-up with neurologist within 1-2 weeks. Continue neuro checks. Continue cardiac monitoring PT OT and MECHANICAL ASSEMBLER are consulted We'll defer the rest of the medical management to primary team. For DVT prophylaxis: On subcu heparin 5000 units every 8 hours The plan is discussed with the patient. Otherwise no additional work-up besides above. Monster Reza M.D. Hospitalist Time with Patient: Less than 30
[2022-02-21 10:58] LABS: African American GFR (CKD) 62.9 (60.0-200.0); Albumin 3.9 g/dL (3.8-4.9); Albumin/Globulin Ratio 2.44 (1.60-3.17); Anion Gap 10.7 mmol/L (10.00-18.00); BUN/Creat Ratio 23.6 Ratio (12.00-20.00); Blood Urea Nitrogen 23.6 mg/dL (9.0-27.0); Calcium 9.6 mg/dL (8.7-10.3); Carbon Dioxide 22.3 mmol/L (20.0-27.5); Globulin 1.6 g/dL (1.6-3.3); Non-African American GFR(CKD) 54.3 (60.0-200.0); Potassium 4.2 mmol/L (3.5-5.5); Total Bilirubin 0.5 mg/dL (0.30-1.20); Total Protein 5.5 g/dL (6.2-8.2)
--- NOTE | 2022-02-21 11:02 | P.CRDCN ---
History of Present Illness Consult date: 02/21/22 History of present illness: HISTORY OF PRESENT ILLNESS: This is a 76-year-old female with a past medical history significant for bipolar disorder. Patient follows in the office with Dr. Roman. We have been asked to see the patient in consultation for chest pain. Patient examined at the bedside. Patient presented to the hospital after experiencing some slurred speech. Her symptoms have since resolved. She reports having some chest pain on and off for the past few months. She currently denies any chest pain. Denies SOB. Denies dizziness or lightheadedness. * EKG reveals sinus mechanism with no signs of acute ischemia * Laboratory data: WBC 7.31. Hemoglobin 12.6. Platelet count 229. Sodium 139. Potassium 4.2. BUN 23. Creatinine 1.0. * Current home cardiac medications include none * Cardiac catheterization history: December 2020 revealing normal coronary arteries REVIEW OF SYSTEMS: At the time of my exam: CONSTITUTIONAL: Denies fever or chills. HEENT: Denies blurred vision, vision changes, or eye pain. Denies hemoptysis CARDIOVASCULAR: Denies chest pain. Denies orthopnea. Denies PND. Denies palpitat ions RESPIRATORY: Denies shortness of breath. GASTROINTESTINAL: Denies abdominal pain. Denies nausea or vomiting. HEMATOLOGIC: Denies bleeding disorders. GENITOURINARY: Denies any blood in urine. SKIN: Denies pruitis. Denies rash. PHYSICAL EXAM: VITAL SIGNS: Reviewed. GENERAL: Well-developed in no acute distress. HEENT: Head is normocephalic. Pupils are equal, round. Sclerae anicteric. Mucous membranes of the mouth are moist. Neck supple. No JVD or thyromegaly LUNGS: Respirations even and unlabored. Lungs essentially clear to auscultation bilaterally. HEART: Regular rate and rhythm. S1 and S2 heard. ABDOMEN: Soft. Nondistended. Nontender. EXTREMITIES: Normal range of motion. No clubbing or cyanosis. Peripheral pulses intact. No lower extremity edema NEUROLOGIC: Awake and alert. Oriented x 3. ASSESSMENT: Slurred speech, possible TIA Chest pain with normal cardiac cath in 2020 Bipolar disorder PLAN: Obtain 2D echo to assess cardiac structure and function Continue aspirin, plavix, and lipitor Neurology following Patient to have 30 day event monitor placed at discharge to assess for arrhythmias Further recommendations pending patient course Nurse practitioner note has been reviewed by physician. Signing provider agrees with the documented findings, assessment, and plan of care. Past Medical History Past Medical History: Asthma Additional Past Medical History / Comment(s): Depression and Bipolar History of Any Multi-Drug Resistant Organisms: None Reported Past Surgical History: Tubal Ligation Additional Past Surgical History / Comment(s): ovary Past Psychological History: Bipolar Smoking Status: Never smoker Past Alcohol Use History: None Reported Past Drug Use History: None Reported Medications and Allergies Home Medications Medication Instructions Recorded Confirmed Type [place] Carbonate 300 mg PO BID 12/08/20 02/19/22 History Amoxicillin 2,000 mg PO ONCE PRN 02/19/22 02/19/22 History Cariprazine HCl [Vraylar] 1.5 mg PO DAILY 02/19/22 02/19/22 History Gabapentin 300 mg PO HS 02/19/22 02/19/22 History Temazepam [Restoril] 30 mg PO HS 02/19/22 02/19/22 History Allergies Allergy/AdvReac Type Severity Reaction Status Date / Time No Known Allergies Allergy Verified 02/19/22 17:26 Physical Exam Vitals: Vital Signs Temp Pulse Pulse Resp BP Pulse Ox 02/21/22 07:00 97.9 F 61 16 99/50 97 02/21/22 01:39 97.9 F 62 15 115/58 99 02/20/22 19:46 18 02/20/22 19:41 97.7 F 89 17 135/75 99 02/20/22 15:00 98.0 F 66 18 145/85 98 Intake and Output 02/20/22 02/21/22 02/21/22 22:59 06:59 14:59 Intake Total 118 Balance 118 Intake: Oral 118 Other: # Voids 2 Weight 74.389 kg Results 02/21/22 06:36 02/19/22 15:13 CBC 02/21/22 Range/Units 06:36 WBC 7.31 (4.50-10.00) X 10*3/uL RBC 4.23 (4.10-5.20) X 10*6/uL Hgb 12.6 (12.0-15.0) g/dL Hct 38.1 (37.2-46.3) % Plt Count 229 (140-440) X 10*3/uL Current Medications Generic Name Dose Route Start Last Admin Trade Name Freq PRN Reason Stop Dose Admin Acetaminophen 325 mg 02/20/22 06:08 Acetaminophen Tab 325 Mg Tab PO Q6HR PRN Fever and/ or Pain Aspirin 81 mg 02/20/22 09:00 02/21/22 08:58 Aspirin 81 Mg PO 81 mg DAILY MICHELLE Administration Atorvastatin Calcium 20 mg 02/20/22 21:00 02/20/22 21:58 Atorvastatin 20 Mg Tab PO 20 mg HS MICHELLE Administration Clopidogrel Bisulfate 75 mg 02/20/22 09:00 02/21/22 08:58 Clopidogrel 75 Mg Tab PO 75 mg DAILY MICHELLE Administration Gabapentin 300 mg 02/19/22 21:00 02/20/22 21:58 Gabapentin 300 Mg Cap PO 300 mg HS MICHELLE Administration Heparin Sodium (Porcine) 5,000 unit 02/20/22 16:00 02/21/22 08:58 Heparin Sodium,Porcine/Pf 5,000 Unit/0.5 Ml Syringe SQ 5,000 unit Q8HR MICHELLE Administration Sodium Chloride 1,000 mls @ 20 mls/hr 02/19/22 16:45 02/20/22 16:05 Saline 0.9% IV 20 mls/hr .Q24H MICHELLE Administration [place] Carbonate 300 mg 02/19/22 21:00 02/21/22 08:58 [place] Carbonate 300 Mg Cap PO 300 mg BID MICHELLE Administration Cariprazine Hcl [ 1.5 mg 02/20/22 09:00 02/21/22 09:00 Vraylar] 1.5 Mg PO Not Given Capsule DAILY MICHELLE Temazepam 30 mg 02/21/22 21:00 Temazepam 15 Mg Cap PO HS MICHELLE Intake and Output 02/20/22 02/21/22 02/21/22 22:59 06:59 14:59 Intake Total 118 Balance 118 Intake: Oral 118 Other: # Voids 2 Weight 74.389 kg 02/21/22 06:36 02/19/22 15:13
--- NOTE | 2022-02-21 11:26 | MR ---
EXAMINATION TYPE: MR brain wo/w con DATE OF EXAM: 02/21/2022 COMPARISON: CT 02/19/2022 HISTORY: Confusion, slurred speech TECHNIQUE: Multiplanar, multisequence images of the brain and brainstem is performed without and with IV contras t, utilizing 7.5 mL intravenous Gadavist . FINDINGS: Diffusion weighted images demonstrate no evidence of a recent infarct or other diffusion ab normality. Moderate generalized degenerative change. There are multiple areas of abnormal signal seen scattered throughout the white matter in a pattern which is nonspecific but most typical of remote w darion matter ischemia. Small punctate areas of abnormal signal involving the basis of remote ischemia. Midline structures demonstrate normal morphology. The craniocervical junction appears within normal limits. Post contrast images demonstrate no abnormal enhancement. The dural venous sinuses appear pa tent. Changes of chronic sinusitis are noted. Orbits are symmetric and IMPRESSION: 1. Degenerative and nonspecific white matter changes most typical of remote white matter ischemia. 2. No diagnostic evidence of acute ischemia.
--- NOTE | 2022-02-21 13:13 | P.DS ---
Providers Date of admission: 02/19/22 16:39 Expected date of discharge: 02/21/22 Attending physician: Gaye Garza Consults: 02/19/22 16:40 Consult Physician Routine Consulting Provider: Monster Reza Consult Reason/Comments: tia Do you want consulting provider notified?: Yes 02/20/22 17:27 Consult Physician Routine Consulting Provider: Kirk Raymond Consult Reason/Comments: Episodes of chest pain Do you want consulting provider notified?: Yes Primary care physician: Rabia Ponce Hospital Course: Discharge diagnosis Episode of confusion and slurred speech, possibly related to transient ischemic attack Underlying history of depression Underlying history of sleep disturbance Underlying history of hypertension Underlying history of hyperlipidemia Episodes of chest pain over the last 2-3 weeks Hospital course Karis Mueller, is a 76-year-old female who presented to [facility] emergency room with a chief complaint of confusion and slurred speech Patient stated that she left her home riding on her bicycle she went to her dentist, after her dentist appointment the staff noticed that she was not feeling well they called her to come and pick her up, he noticed that she was slurring her speech and that she was confused he took her to Dr. Ponce's office who advised them to go to emergency room. She was evaluated in the emergency room vital examination on presentation revealed a temperature of 98.6 pulse 65 respiration 16 blood pressure 129/76 pulse ox 98% on room air Laboratory data reveals a white blood count of 8.5 hemoglobin 13.5 platelet count 225 sodium 137 potassium 4.1 chloride 104 CO2 21 BUN 18 creatinine 0.86 A1c 5.6 Testing in the emergency room revealed EKG revealed sinus rhythm with sinus arrhythmia and first-degree AV block computed tomography scan done in the emergency room without contrast revealed nonspecific white matter changes without diagnostic evidence of acute hemorrhage or mass affect. Patient was admitted to medical floor for further evaluation and treatment, neurology consultation was requested Patient also stated that she was having episodes of chest pain on and off for the last few weeks. On 02/21/2022 patient is alert and oriented 3 no further issues. Patient reports she feels back to normal. Per neurology services continue aspirin and Plavix for 21 days after 20 days to stop Plavix but continue aspirin patient to also be continued on Lipitor 20 mg daily. Recommended cognitive assessment for memory issues as outpatient with neurologist in 1-2 weeks. MRI of the brain completed showing degenerative and nonspecific white matter changes most white matter ischemia no diagnostic evidence of acute ischemia. Carotid Doppler negative. EEG negative. Cardiology services have ordered a strep monitor patient Placed prior to discharge. Discussed with nursing staff the patient to have cardiac clearance prior to discharge to follow up with PCP, neurology services and cardiology services upon discharge Patient Condition at Discharge: Stable Plan - Discharge Summary Discharge Rx Participant: No New Discharge Prescriptions: New Aspirin 81 mg PO DAILY 30 Days #30 tab Clopidogrel [Plavix] 75 mg PO DAILY 30 Days #30 tab Atorvastatin [Lipitor] 20 mg PO HS 30 Days #30 tab Continue [place] Carbonate 300 mg PO BID Cariprazine HCl [Vraylar] 1.5 mg PO DAILY Temazepam [Restoril] 30 mg PO HS Gabapentin 300 mg PO HS Discontinued Amoxicillin 2,000 mg PO ONCE PRN PRN Reason: 1 HOUR PRIOR TO DENTAL APPT Discharge Medication List [place] Carbonate 300 mg PO BID 12/08/20 [History] Cariprazine HCl [Vraylar] 1.5 mg PO DAILY 02/19/22 [History] Gabapentin 300 mg PO HS 02/19/22 [History] Temazepam [Restoril] 30 mg PO HS 02/19/22 [History] Aspirin 81 mg PO DAILY 30 Days #30 tab 02/21/22 [Rx] Atorvastatin [Lipitor] 20 mg PO HS 30 Days #30 tab 02/21/22 [Rx] Clopidogrel [Plavix] 75 mg PO DAILY 30 Days #30 tab 02/21/22 [Rx] Follow up Appointment(s)/Referral(s): Rabia Ponce MD [Primary Care Provider] - 1-2 days Activity/Diet/Wound Care/Special Instructions: Patient to have event monitor placed per cardiology recommendation Discharge Disposition: HOME SELF-CARE
--- NOTE | 2022-02-21 13:52 | CA ---
Transthoracic Echo Report Name: Karis Mueller Age: 76 Gender: F : 1945 Exam Date: 02/20/2022 12:44 Exam Location: [facility] Ht (in): 65 Wt (lb): 164 Ordering Physician: Monster Reza MD Attending/Referring Phys: Research Nurse Practitioner Elda Bueno RDCS Procedure CPT: Indications: stroke Cardiac Hx: Technical Quality: Fair Contrast 1: Total Dose (mL): Contrast 2: Total Dose (mL): MEASUREMENTS (Male / Female) Normal Values 2D ECHO LV Diastolic Diameter PLAX 4.2 cm 4.2 - 5.9 / 3.9 - 5.3 cm LV Systolic Diameter PLAX 2.5 cm IVS Diastolic Thickness 0.9 cm 0.6 - 1.0 / 0.6 - 0.9 cm LVPW Diastolic Thickness 0.9 cm 0.6 - 1.0 / 0.6 - 0.9 cm LV Relative Wall Thickness 0.4 RV Internal Dim ED PLAX 2.6 cm LA Systolic Diameter LX 3.4 cm 3.0 - 4.0 / 2.7 - 3.8 cm LA Volume 45.5 cm??? 18 - 58 / 22 - 52 cm??? M-MODE Aortic Root Diameter MM 2.5 cm MV E Point Septal Separation 0.5 cm AV Cusp Separation MM 2.1 cm DOPPLER AV Peak Velocity 146.5 cm/s AV Peak Gradient 8.6 mmHg MV Area PHT 2.9 cm??? Mitral E Point Velocity 83.6 cm/s Mitral A Point Velocity 103.6 cm/s Mitral E to A Ratio 0.8 MV Deceleration Time 258.7 ms MV E' Velocity 8.2 cm/s Mitral E to MV E' Ratio 10.3 TR Peak Velocity 241.1 cm/s TR Peak Gradient 23.3 mmHg Right Ventricular Systolic Press 27.1 mmHg FINDINGS Left Ventricle Left ventricular ejection fraction is estimated at 55-60 %. Left ventricular cavity size normal. Left ventricular wall thickness normal. Right Ventricle Normal right ventricular size and function. Right ventricular systolic pressure within normal limits. Right Atrium Normal right atrial size. Left Atrium Normal left atrial size. No evidence for an atrial septal defect. Mitral Valve Mitral valve thickened. No mitral stenosis, regurgitation or prolapse. Aortic Valve Trileaflet aortic valve. No aortic valve stenosis or regurgitation. Tricuspid Valve Mild tricuspid regurgitation. Pulmonic Valve Mild pulmonic regurgitation. Pericardium No thickening/calcification of the pericardium. No pericardial effusion. Aorta Normal size aortic root and proximal ascending aorta. CONCLUSIONS Normal LV size and systolic function Previewed by: Dr. Barry Amin MD (Electronically Signed) Final Date: 20 February 2022 16:55
[2022-02-21 14:23] VITALS: BP 104/62; PULSE 71; TEMP 97.6
== END 2022-02-21 16:10 | disposition home or self-care (01) ==
LOC: EC 14:34 → 6NMEDSUR 16:39
PROVIDERS: ADMIT Internal Medicine; ATTEND Internal Medicine
DX: R47.81 Slurred speech (principal); R41.0 Disorientation, unspecified; R47.1 Dysarthria and anarthria; I44.0 Atrioventricular block, first degree; R07.9 Chest pain, unspecified; Z20.822 Contact with and (suspected) exposure to COVID-19; J45.909 Unspecified asthma, uncomplicated; F31.9 Bipolar disorder, unspecified; G47.9 Sleep disorder, unspecified; I10 Essential (primary) hypertension; E78.5 Hyperlipidemia, unspecified; Z82.0 Family history of epilepsy and other diseases of the nervous system; Z98.51 Tubal ligation status; Z79.899 Other long term (current) drug therapy
CPT/HCPCS: 96372 ×2; 99285; 36415; 94760; 95816; 93005; 93306; 93270; 97162; 97165; 92523; 80061; 80053 ×2; 84443; 80178; 85025 ×2; 85610; 85730; 83036; 87635; 93880; 70450; 70553; G0378 ×3; J1644 ×2

== ENCOUNTER 2022-03-23 12:07 | Day surgery (SDC) | payer MEDICARE ==
[2022-03-21 12:42] VITALS: BMI 27.4
[~2022-03-23 12:07] MED LIST changes: +LACTATED RINGERS 1,000 ML IV SCH; -REGADENOSON 0.4 MG/5 ML SYRINGE IV PRN
[2022-03-23 13:35] VITALS: TEMP 96.2
[2022-03-23] MEDS ORDERED: PROPOFOL 10 MG/ML 20 ML VIAL IV ONE (14:32)
--- NOTE | 2022-03-23 15:17 | P.PCN ---
Date of Procedure: 03/23/22 Procedure(s) Performed: BRIEF HISTORY: Patient is a 76-year-old pleasant white female scheduled for an elective colonoscopy as a part of evaluation of prior history of colon polyps. Next PROCEDURE PERFORMED: Colonoscopy with snare polypectomy. PREOPERATIVE DIAGNOSIS: History of colon polyps. IV sedation per Anesthesia. PROCEDURE: After informed consent was obtained, the patient, was brought into the endoscopy unit. IV sedation was administered by Anesthesia under continuous monitoring. Digital rectal examination was normal. Initially the Olympus CF-160 flexible video colonoscope was then inserted in the rectum, gradually advanced into the cecum without any difficulty. Careful examination was performed as the scope was gradually being withdrawn. Ileocecal valve and the appendiceal orifice were visualized and appeared normal. Prep was excellent. Mucosa of the cecum appeared normal. Just opposite to the ileocecal valve, 3 cm broad-based polyp that was removed by snare polypectomy and complete polypectomy accomplished. In the ascending colon there was a 1 cm polyp removed by snare polypectomy. Rest of the ascending colon, transverse colon, descending colon, sigmoid colon, and rectum appeared normal. Scattered sigmoid diverticulosis seen. Retroflexion was performed in the rectum and no lesions were seen. The patient tolerated the procedure well. IMPRESSION: 3 cm broad-based cecal polyp opposite the ileocecal valve and this was snare polypectomy and complete polypectomy accomplished 1 cm and 2 cm ascending colon polyp status post polypectomy Scattered sigmoid diverticulosis RECOMMENDATIONS: Findings of this examination were discussed with the patient as well as a family. She was advised to follow with the biopsy results and have a repeat colonoscopy in one year..
[2022-03-23 15:45] VITALS: RESP 18
[2022-03-23 17:01] VITALS: BP 139/65; PULSE 52
== END 2022-03-23 17:00 | disposition home or self-care (01) ==
LOC: ORWHC2ENDO 12:07
PROVIDERS: ATTEND Internal Medicine Gastroenterology
DX: Z12.11 Encounter for screening for malignant neoplasm of colon (principal); D12.0 Benign neoplasm of cecum; D12.2 Benign neoplasm of ascending colon; K57.30 Diverticulosis of large intestine without perforation or abscess without bleeding; K62.5 Hemorrhage of anus and rectum; J45.909 Unspecified asthma, uncomplicated; Z87.19 Personal history of other diseases of the digestive system
CPT/HCPCS: 88305; 45385; J2704

== ENCOUNTER 2023-04-05 10:18 | Day surgery (SDC) | payer MEDICARE ==
[2023-04-04 10:30] VITALS: BMI 27.3
[2023-04-05] MEDS: LACTATED RINGERS 1,000 ML IV SCH ×2 (10:47→11:42)
[2023-04-05 11:11] VITALS: TEMP 97
[2023-04-05] MEDS ORDERED: PROPOFOL 10 MG/ML 20 ML VIAL IV ONE (11:43)
--- NOTE | 2023-04-05 12:16 | P.PCN ---
Date of Procedure: 04/05/23 Procedure(s) Performed: BRIEF HISTORY: Patient is a 77-year-old pleasant white female scheduled for an elective colonoscopy as a part of follow-up of large cecal polyp that was noted on colonoscopy in now January 2022. PROCEDURE PERFORMED: Colonoscopy. PREOPERATIVE DIAGNOSIS: Follow-up large cecal polyp. IV sedation per Anesthesia. PROCEDURE: After informed consent was obtained, the patient, was brought into the endoscopy unit. IV sedation was administered by Anesthesia under continuous monitoring. Digital rectal examination was normal. Initially the Olympus CF-160 flexible video colonoscope was then inserted in the rectum, gradually advanced into the sigmoid : Further advancement was not possible. The pediatric colonoscope was then inserted in the rectum and gradually gradually advanced into the right colon with severe difficulty. Despite multiple attempts I was not able to advance the scope into the base of the cecum. The ileocecal valve was visualized that appeared normal. Mucosa of the ascending colon, transverse colon, descending colon colon, sigmoid colon, and rectum appeared normal. Scattered sigmoid diverticulosis seen. Retroflexion was performed in the rectum and no lesions were seen. The patient tolerated the procedure well. IMPRESSION: Scattered sigmoid diverticulosis No evidence of colorectal neoplasia RECOMMENDATIONS: Findings of this examination were discussed with the patient as a family.. She was advised to have a repeat colonoscopy in 3 years.
[2023-04-05 12:35] VITALS: RESP 16
[2023-04-05 12:57] VITALS: BP 119/76; PULSE 53
== END 2023-04-05 13:15 | disposition home or self-care (01) ==
LOC: ORWHC2ENDO 10:18
PROVIDERS: ATTEND Internal Medicine Gastroenterology
DX: K63.5 Polyp of colon (principal); K57.30 Diverticulosis of large intestine without perforation or abscess without bleeding; J45.909 Unspecified asthma, uncomplicated; Z86.010 Personal history of colon polyps; Z79.899 Other long term (current) drug therapy; Z86.73 Personal history of transient ischemic attack (TIA), and cerebral infarction without residual deficits; Z79.51 Long term (current) use of inhaled steroids
CPT/HCPCS: 45378; J2704

== ENCOUNTER 2023-11-22 14:03 | Emergency (ER) | payer MEDICARE ==
[2023-11-22 14:22] VITALS: RESP 16; TEMP 97.4
--- NOTE | 2023-11-22 17:02 | ED ---
Psych HPI - General Chief Complaint: Psychiatric Symptoms Stated Complaint: Racing thoughts, anxiety Time Seen by Provider: 11/22/23 16:30 Source: patient, RN notes reviewed Mode of arrival: ambulatory - History of Present Illness Initial Comments: 78-year-old female with history of anxiety and depression presenting with anxiety. She states she has been having some worsening racing thoughts and feelings of grief and guilt since her losing her son in May. She has been having trouble sleeping due to her racing thoughts. She follows closely with outpatient psychiatrist who recently adjusted her meds, tapering her lithium and starting her on lamotrigine. She denies any current suicidal or homicidal ideation. Denies chest pain, shortness of breath, fevers. She denies any medical complaints at this time. - Related Data Home Medications Medication Instructions Recorded Confirmed ALPRAZolam [Xanax] 0.25 mg PO Q6H PRN 11/22/23 11/22/23 D-Mannose 1,300 mg PO DAILY 11/22/23 11/22/23 Gabapentin 600 mg PO HS 11/22/23 11/22/23 Vit C/E/Zn/Coppr/Lutein/Zeaxan 1 cap PO BID 11/22/23 11/22/23 [Preservision Areds 2 Softgel] Vortioxetine Hydrobromide 20 mg PO DAILY 11/22/23 11/22/23 [Trintellix] lamoTRIgine [LaMICtal] 150 mg PO DAILY 11/22/23 11/22/23 Allergies Allergy/AdvReac Type Severity Reaction Status Date / Time No Known Allergies Allergy Verified 11/22/23 17:22 Review of Systems ROS Statement: Those systems with pertinent positive or pertinent negative responses have been documented in the HPI. ROS Other: All systems not noted in ROS Statement are negative. 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 Bilateral hearing aid use. History of Any Multi-Drug Resistant Organisms: None Reported Past Surgical History: Hysterectomy, Tubal Ligation Additional Past Surgical History / Comment(s): Exploratory abdominal surgery. Past Anesthesia/Blood Transfusion Reactions: Previous Problems w/ Anesthesia Additional Past Anesthesia/Blood Transfusion Reaction / Comment(s): "Take a long tome to wake up". Past Psychological History: Bipolar Smoking Status: Never smoker Past Alcohol Use History: Occasional Past Drug Use History: None Reported - Past Family History Brother(s) Family Medical History: Cancer General Exam Limitations: no limitations General appearance: alert, in no apparent distress Head exam: Present: atraumatic, normocephalic, normal inspection Eye exam: Present: normal appearance, PERRL, EOMI. Absent: scleral icterus, conjunctival injection, periorbital swelling ENT exam: Present: normal exam, mucous membranes moist Neck exam: Present: normal inspection. Absent: tenderness, meningismus, lymphadenopathy Respiratory exam: Present: normal lung sounds bilaterally. Absent: respiratory distress, wheezes, rales, rhonchi, stridor Cardiovascular Exam: Present: regular rate, normal rhythm, normal heart sounds. Absent: systolic murmur, diastolic murmur, rubs, gallop, clicks Neurological exam: Present: alert, oriented X3, CN II-XII intact Psychiatric exam: Present: normal affect, normal mood Skin exam: Present: warm, dry, intact, normal color. Absent: rash Course Vital Signs 11/22/23 11/22/23 14:19 17:15 Temperature 97.4 F L Pulse Rate 97 92 Respiratory 16 16 Rate Blood Pressure 153/85 148/92 O2 Sat by Pulse 98 98 Oximetry Medical Decision Making - Medical Decision Making Was pt. sent in by a medical professional or institution ([facility], [employer], urgent care, hospital, or jail...) When possible be specific @ -No Did you speak to anyone other than the patient for history (EMS, parent, family, police, friend...)? What history was obtained from this source @ -Patient's supplemented history Did you review nursing and triage notes (agree or disagree)? Why? @ -I reviewed and agree with nursing and triage notes Were old charts reviewed (outside hosp., previous admission, EMS record, old EKG, old radiological studies, urgent care reports/EKG's, jail records)? Report findings @ -No old charts were reviewed Differential Diagnosis (chest pain, altered mental status, abdominal pain women, abdominal pain men, vaginal bleeding, weakness, fever, dyspnea, syncope, headache, dizziness, GI bleed, back pain, seizure, CVA, palpatations, mental health, musculoskeletal)? @ -Differential Mental Health Depression, anxiety, bipolar, psychosis, schizophrenia, borderline personality, situational depression, adjustment disorder, behavioral disorder, brain tumor, malingering, substance abuse, encephalopathy, medication reaction, dementia, hypothyroidism, degenerative neurologic disorder, lupus.... This is not meant to be all-inclusive list EKG interpreted by me (3pts min.). @ -None X-rays interpreted by me (1pt min.). @ -None done CT interpreted by me (1pt min.). @ -None done U/S interpreted by me (1pt. min.). @ -None done What testing was considered but not performed or refused? (CT, X-rays, U/S, labs)? Why? @ -None What meds were considered but not given or refused? Why? @ -None Did you discuss the management of the patient with other professionals (professionals i.e. , PA, [employer], lab, RT, psych nurse, social media executive, intellectual property lawyer, teacher, public records officer, shelter case manager)? Give summary @ -Case was discussed with Frank from EPS who recommends outpatient follow-up at this time. Patient does not meet inpatient criteria. Safety plan discussed. Was smoking cessation discussed for >3mins.? @ -No Was critical care preformed (if so, how long)? @ -No Were there social determinants of health that impacted care today? How? (Homelessness, low income, unemployed, alcoholism, drug addiction, transportation, low edu. Level, literacy, decrease access to med. care, custodial, rehab)? @ -No Was there de-escalation of care discussed even if they declined (Discuss DNR or withdrawal of care, Hospice)? DNR status @ -No What co-morbidities impacted this encounter? (DM, HTN, Smoking, COPD, CAD, Cancer, CVA, ARF, Chemo, Hep., AIDS, mental health diagnosis, sleep apnea, morbid obesity)? @ -Generalized anxiety disorder Was patient admitted / discharged? Hospital course, mention meds given and route, prescriptions, significant lab abnormalities, going to OR and other pertinent info. @ -Patient was discharged. Patient was seen and evaluated for anxiety. Patient has a long history of anxiety and follows closely with psychiatrist. Patient denies any suicidal or homicidal ideation at this time. There are no current medical complaints. Vital signs and physical examination is unremarkable. Patient was seen by Frank from EPS who recommended outpatient follow-up at this time as patient does not meet inpatient criteria. Safety plan was discussed with patient in detail. Strict return/alarm symptoms discussed with patient in detail and she shows understanding and agrees to plan. Case discussed with my attending Dr. Lopez. Patient discharged in stable condition. Undiagnosed new problem with uncertain prognosis? @ -No Drug Therapy requiring intensive monitoring for toxicity (Heparin, Nitro, Insulin, Cardizem)? @ -No Were any procedures done? @ -No Diagnosis/symptom? @ -Generalized anxiety disorder Acute, or Chronic, or Acute on Chronic? @ -Acute on chronic Uncomplicated (without systemic symptoms) or Complicated (systemic symptoms)? @ -Uncomplicated Side effects of treatment? @ -No Exacerbation, Progression, or Severe Exacerbation? @ -No Poses a threat to life or bodily function? How? (Chest pain, [place], CO, pneumonia, PE, COPD, DKA, ARF, appy, cholecystitis, CVA, Diverticulitis, Homicidal, Suicidal, threat to staff... and all critical care pts) @ -No Disposition Clinical Impression: Generalized anxiety disorder Disposition: HOME SELF-CARE Condition: Stable Instructions (If sedation given, give patient instructions): Generalized Anxiety Disorder (ED) Additional Instructions: Please return to the Emergency Department if symptoms worsen or any other concerns. Is patient prescribed a controlled substance at d/c from ED?: No Referrals: Rabia Ponce MD [Primary Care Provider] - 1-2 days Time of Disposition: 17:02
[2023-11-22 17:15] VITALS: BP 148/92; PULSE 92
== END 2023-11-22 17:23 | disposition home or self-care (01) ==
LOC: EC 14:03
DX: F41.1 Generalized anxiety disorder (principal); Z86.73 Personal history of transient ischemic attack (TIA), and cerebral infarction without residual deficits
CPT/HCPCS: 99284

== ENCOUNTER → 2023-12-05 | Outpatient (CLI) | payer MEDICARE ==
--- NOTE | 2023-12-09 08:38 | MM ---
Reason for Exam: Screening (asymptomatic). Last mammogram was performed 1 year(s) and 11 month(s) ago. Patient History: Menarche at age 12. First Full-Term at age 24. Left ovary removed at age 59. Right ovary removed at age 59. Hysterectomy at age 59. Postmenopausal. Endometrial cancer, age 59. Sister had breast cancer, age 50. Risk Values: Kelsey 5 year model risk: 3.3%. NCI Lifetime model risk: 5.5%. Prior Study Comparison: 03/04/2019 Bilateral Screening Mammogram, [facility]. 12/02/2020 Bilateral Screening Mammogram, [facility]. 12/12/2021 Bilateral MG 3D screening mammo w/cad, [facility]. Tissue Density: The breasts are heterogeneously dense, which may obscure small masses. Findings: Analyzed By CAD. There is no suspicious group of microcalcifications or new suspicious mass in either breast. Appearing calcification. Overall Assessment: Benign, BI-RAD 2 Management: Screening Mammogram of both breasts in 1 year. . Patient should continue monthly self-breast exams. A clinical breast exam by your physician is recommended on an annual basis. This exam should not preclude additional follow-up of suspicious palpable abnormalities. Note on Kelsey scores and lifetime risk: 1. A Kelsey score greater than 3% is considered moderate risk. If this is the case, consider specialist referral to assess eligibility for a risk reducing agent. 2. If overall lifetime risk for the development of breast cancer is 20% or higher, the patient may qualify for future screening with alternating mammogram and breast MRI. Electronically signed and approved by: Deric Malone M.D. Radiologis
== END | disposition home or self-care (01) ==
LOC: RADMAMWWP 11:41
PROVIDERS: ATTEND Family Medicine
DX: Z12.31 Encounter for screening mammogram for malignant neoplasm of breast (principal); Z78.0 Asymptomatic menopausal state; Z80.3 Family history of malignant neoplasm of breast
CPT/HCPCS: 77063; 77067

== ENCOUNTER 2024-03-19 20:03 | Inpatient (IN) | payer MEDICARE ==
--- NOTE | 2024-03-19 21:27 | ED ---
Weakness HPI - General Chief complaint: Weakness Stated complaint: neuro symptoms Source: patient, RN notes reviewed, old records reviewed Mode of arrival: ambulatory Limitations: no limitations - History of Present Illness Initial comments: This is a 78-year-old female to the ER for evaluation of weakness. Patient recently was thought to have urinary tract infection some confusion not acting appropriate per the at bedside. Decreased appetite and eating and drinking today. MD Complaint: generalized weakness, lack of energy, difficulty walking -: days(s) Location: generalized Severity: moderate Severity scale (1-10): 5 Quality: aching Consistency: constant Improves with: none Worsens with: none Context: recent illness, history of similar Associated Symptoms: denies other symptoms - Related Data Home Medications Medication Instructions Recorded Confirmed ALPRAZolam [Xanax] 0.25 mg PO Q6H PRN 11/22/23 03/20/24 D-Mannose 1,300 mg PO DAILY 11/22/23 03/20/24 Gabapentin 600 mg PO HS 11/22/23 03/20/24 Vit C/E/Zn/Coppr/Lutein/Zeaxan 1 cap PO BID 11/22/23 03/20/24 [Preservision Areds 2 Softgel] Cariprazine HCl [Vraylar] 3 mg PO DAILY 03/20/24 03/20/24 Vortioxetine Hydrobromide 10 mg PO DAILY 03/20/24 03/20/24 [Trintellix] lamoTRIgine 100 mg PO DAILY 03/20/24 03/20/24 Allergies Allergy/AdvReac Type Severity Reaction Status Date / Time No Known Allergies Allergy Verified 03/20/24 09:58 Review of Systems ROS Statement: Those systems with pertinent positive or pertinent negative responses have been documented in the HPI. ROS Other: All systems not noted in ROS Statement are negative. 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 Bilateral hearing aid use. History of Any Multi-Drug Resistant Organisms: None Reported Past Surgical History: Hysterectomy, Tubal Ligation Additional Past Surgical History / Comment(s): Exploratory abdominal surgery. Past Anesthesia/Blood Transfusion Reactions: Previous Problems w/ Anesthesia Additional Past Anesthesia/Blood Transfusion Reaction / Comment(s): "Take a long tome to wake up". Past Psychological History: Bipolar Smoking Status: Never smoker Past Alcohol Use History: Occasional Past Drug Use History: None Reported - Past Family History Brother(s) Family Medical History: Cancer General Exam Limitations: no limitations General appearance: alert, in no apparent distress Head exam: Present: atraumatic, normocephalic, normal inspection Eye exam: Present: normal appearance, PERRL, EOMI. Absent: scleral icterus, conjunctival injection, periorbital swelling ENT exam: Present: normal exam, mucous membranes moist Neck exam: Present: normal inspection. Absent: tenderness, meningismus, lymphadenopathy Respiratory exam: Present: normal lung sounds bilaterally. Absent: respiratory distress, wheezes, rales, rhonchi, stridor Cardiovascular Exam: Present: regular rate, normal rhythm, normal heart sounds. Absent: systolic murmur, diastolic murmur, rubs, gallop, clicks GI/Abdominal exam: Present: soft, normal bowel sounds. Absent: distended, tenderness, guarding, rebound, rigid Extremities exam: Present: normal inspection, full ROM, normal capillary refill. Absent: tenderness, pedal edema, joint swelling, calf tenderness Back exam: Present: normal inspection Neurological exam: Present: alert, oriented X3, CN II-XII intact Psychiatric exam: Present: normal affect, normal mood Skin exam: Present: warm, dry, intact, normal color. Absent: rash Course Vital Signs 03/19/24 03/19/24 03/20/24 20:10 23:00 01:41 Temperature 97.9 F Pulse Rate 92 81 75 Respiratory 18 16 16 Rate Blood Pressure 155/91 169/89 133/81 O2 Sat by Pulse 100 98 Oximetry - Reevaluation(s) Reevaluation #1: 03/19/24 23:13 Medical records reviewed Reevaluation #2: 03/19/24 23:13 Patient symptoms unchanged Reevaluation #3: 03/19/24 23:13 Patient informed of results and questions answered Reevaluation #4: 03/19/24 23:13 Was pt. sent in by a medical professional or institution (, PA, RECONCILIATION MANAGER, urgent care, hospital, or correction...) When possible be specific @ -no Did you speak to anyone other than the patient for history (EMS, parent, family, police, friend...)? What history was obtained from this source @ -no Did you review nursing and triage notes (agree or disagree)? Why? @ -agree Are old charts reviewed (outside hosp., previous admission, EMS record, old EKG, old radiological studies, urgent care reports/EKG's, correction records)? Report findings @ -yes Differential Diagnosis (chest pain, altered mental status, abdominal pain women, abdominal pain men, vaginal bleeding, weakness, fever, dyspnea, syncope, headache, dizziness, GI bleed, back pain, seizure, CVA, palpatations, mental health, musculoskeletal)? @ -prior EKG interpreted by me (3pts min.). @ -yes X-rays interpreted by me (1pt min.). @ -no CT interpreted by me (1pt min.). @ -yes negative for acute disease U/S interpreted by me (1pt. min.). @ -no What testing was considered but not performed or refused? (CT, X-rays, U/S, labs)? Why? @ -none What meds were considered but not given or refused? Why? @ -none Did you discuss the management of the patient with other professionals (professionals i.e. , PA, RECONCILIATION MANAGER, lab, RT, psych nurse, secondary social studies teacher, agency sales management assistant, teacher, facility security officer, manager case)? Give summary @ -no Was smoking cessation discussed for >3mins.? @ -no Was critical care preformed (if so, how long)? @ -no Were there social determinants of health that impacted care today? How? (Homelessness, low income, unemployed, alcoholism, drug addiction, transport ation, low edu. Level, literacy, decrease access to med. care, fpc, rehab)? @ -none Was there de-escalation of care discussed even if they declined (Discuss DNR or withdrawal of care, Hospice)? DNR status @ -no What co-morbidities impacted this encounter? (DM, HTN, Smoking, COPD, CAD, Cancer, CVA, ARF, Chemo, Hep., AIDS, mental health diagnosis, sleep apnea, morbid obesity)? @ -none Was patient admitted / discharged? Hospital course, mention meds given and route, prescriptions, significant lab abnormalities, going to OR and other pertinent info. @ - 78 Female will be admitted for urinary tract infection persistent nausea vomiting dizziness and weakness not feeling well. Patient has some symptoms of vertigo UTI and dehydration Admitted with vertigo UTI and dehydration Undiagnosed new problem with uncertain prognosis? @ -no Drug Therapy requiring intensive monitoring for toxicity (Heparin, Nitro, Insulin, Cardizem)? @ -no Were any procedures done? @ -no Diagnosis/symptom? @ - Acute, or Chronic, or Acute on Chronic? @ -Acute Uncomplicated (without systemic symptoms) or Complicated (systemic symptoms)? @ -Complicated Side effects of treatment? @ -no Exacerbation, Progression, or Severe Exacerbation? @ -exacerbation Poses a threat to life or bodily function? How? (Chest pain, USA, NH, pneumonia, PE, COPD, DKA, ARF, appy, cholecystitis, CVA, Diverticulitis, Homicidal, S uicidal, threat to staff... and all critical care pts) @ -yes extremes of age Reevaluation #5: Differential Weakness: Hypoglycemia, shock, sepsis, hyponatremia, anemia, infection, NH, ETOH, adverse medicine reaction, overdose, stroke, this is not meant to be an all-inclusive list. - Consultations Consultation #1: With admitting physicians who agreed to admit this patient EKG Findings - EKG Comments: EKG Findings:: EKG sinus 89 IN 224 QRS 97 QTc 372 - EKG Results: EKG: interpreted by ERMD Medical Decision Making - Medical Decision Making 78 Female will be admitted for urinary tract infection persistent nausea vomiting dizziness and weakness not feeling well. Patient has some symptoms of vertigo UTI and dehydration - Lab Data Result diagrams: 03/21/24 07:21 03/21/24 07:21 Lab Results 03/19/24 03/19/24 03/19/24 Range/Units 21:28 21:28 21:28 WBC 11.0 H (3.8-10.6) k/uL RBC 5.28 (3.80-5.40) m/uL Hgb 15.5 (11.4-16.0) gm/dL Hct 48.7 H (34.0-46.0) % MCV 92.4 (80.0-100.0) fL MCH 29.4 (25.0-35.0) pg MCHC 31.8 (31.0-37.0) g/dL RDW 13.0 (11.5-15.5) % Plt Count 267 (150-450) k/uL MPV 6.7 Neutrophils % 79 % Lymphocytes % 10 % Monocytes % 8 % Eosinophils % 1 % Basophils % 0 % Neutrophils # 8.7 H (1.3-7.7) k/uL Lymphocytes # 1.1 (1.0-4.8) k/uL Monocytes # 0.9 (0-1.0) k/uL Eosinophils # 0.1 (0-0.7) k/uL Basophils # 0.0 (0-0.2) k/uL PT 10.4 (10.0-12.5) sec INR 0.9 (<1.2) APTT 25.8 (22.0-30.0) sec Sodium 142 (137-145) mmol/L Potassium 3.6 (3.5-5.1) mmol/L Chloride 111 H (98-107) mmol/L Carbon Dioxide 19 L (22-30) mmol/L Anion Gap 12 mmol/L BUN 27 H (7-17) mg/dL Creatinine 1.06 H (0.52-1.04) mg/dL Est GFR (CKD-EPI)AfAm 58 (>60 ml/min/1.73 sqM) Est GFR (CKD-EPI)NonAf 50 (>60 ml/min/1.73 sqM) Glucose 109 H (74-99) mg/dL Plasma Lactic Acid Marquise (0.7-2.0) mmol/L Calcium 12.1 H (8.4-10.2) mg/dL Phosphorus 4.4 (2.5-4.5) mg/dL Magnesium 2.1 (1.6-2.3) mg/dL Total Bilirubin 0.9 (0.2-1.3) mg/dL AST 50 H (14-36) U/L ALT 75 H (4-34) U/L Alkaline Phosphatase 99 (38-126) U/L Troponin I (0.000-0.034) ng/mL NT-Pro-B Natriuret Pep 239 pg/mL Total Protein 7.6 (6.3-8.2) g/dL Albumin 5.2 H (3.5-5.0) g/dL Urine Color Urine Appearance (Clear) Urine pH (5.0-8.0) Ur Specific Guttenberg (1.001-1.035) Urine Protein (Negative) Urine Glucose (UA) (Negative) Urine Ketones (Negative) Urine Blood (Negative) Urine Nitrite (Negative) Urine Bilirubin (Negative) Urine Urobilinogen (<2.0) mg/dL Ur Leukocyte Esterase (Negative) Urine RBC (0-5) /hpf Urine WBC (0-5) /hpf Urine WBC Clumps (None) /hpf Ur Squamous Epith Cells (0-4) /hpf Urine Bacteria (None) /hpf Hyaline Casts (0-2) /lpf Urine Mucus (None) /hpf 03/19/24 03/19/24 03/19/24 Range/Units 21:28 21:28 22:45 WBC (3.8-10.6) k/uL RBC (3.80-5.40) m/uL Hgb (11.4-16.0) gm/dL Hct (34.0-46.0) % MCV (80.0-100.0) fL MCH (25.0-35.0) pg MCHC (31.0-37.0) g/dL RDW (11.5-15.5) % Plt Count (150-450) k/uL MPV Neutrophils % % Lymphocytes % % Monocytes % % Eosinophils % % Basophils % % Neutrophils # (1.3-7.7) k/uL Lymphocytes # (1.0-4.8) k/uL Monocytes # (0-1.0) k/uL Eosinophils # (0-0.7) k/uL Basophils # (0-0.2) k/uL PT (10.0-12.5) sec INR (<1.2) APTT (22.0-30.0) sec Sodium (137-145) mmol/L Potassium (3.5-5.1) mmol/L Chloride (98-107) mmol/L Carbon Dioxide (22-30) mmol/L Anion Gap mmol/L BUN (7-17) mg/dL Creatinine (0.52-1.04) mg/dL Est GFR (CKD-EPI)AfAm (>60 ml/min/1.73 sqM) Est GFR (CKD-EPI)NonAf (>60 ml/min/1.73 sqM) Glucose (74-99) mg/dL Plasma Lactic Acid Marquise 0.9 (0.7-2.0) mmol/L Calcium (8.4-10.2) mg/dL Phosphorus (2.5-4.5) mg/dL Magnesium (1.6-2.3) mg/dL Total Bilirubin (0.2-1.3) mg/dL AST (14-36) U/L ALT (4-34) U/L Alkaline Phosphatase (38-126) U/L Troponin I <0.012 (0.000-0.034) ng/mL NT-Pro-B Natriuret Pep pg/mL Total Protein (6.3-8.2) g/dL Albumin (3.5-5.0) g/dL Urine Color Colorless Urine Appearance Cloudy H (Clear) Urine pH 5.0 (5.0-8.0) Ur Specific Gut[place]berg 1.015 (1.001-1.035) Urine Protein Negative (Negative) Urine Glucose (UA) Negative (Negative) Urine Ketones 1+ H (Negative) Urine Blood Small H (Negative) Urine Nitrite Negative (Negative) Urine Bilirubin Negative (Negative) Urine Urobilinogen <2.0 (<2.0) mg/dL Ur Leukocyte Esterase Large H (Negative) Urine RBC 27 H (0-5) /hpf Urine WBC >182 H (0-5) /hpf Urine WBC Clumps Moderate H (None) /hpf Ur Squamous Epith Cells 7 H (0-4) /hpf Urine Bacteria Occasional H (None) /hpf Hyaline Casts 6 H (0-2) /lpf Urine Mucus Occasional H (None) /hpf - EKG Data -: EKG Interpreted by Me - Radiology Data Radiology results: report reviewed (CT brain is negative for acute disease), image reviewed Disposition Clinical Impression: Dehydration, UTI (urinary tract infection), Dizziness, Nausea & vomiting Disposition: ADMITTED IP TO THIS [facility] Condition: Fair Is patient prescribed a controlled substance at d/c from ED?: No Time of Disposition: 00:25
[2024-03-19] MEDS: SODIUM CHLORIDE 0.9% 1,000 ML IV STA (21:35)
[2024-03-19 21:46] LABS: Basophils % (A) 0 %; Eosinophils # (A) 0.1 k/uL (0-0.7); Eosinophils % (A) 1 %; HCT 48.7 % (34.0-46.0); HGB 15.5 gm/dL (11.4-16.0); Lymphocytes # (A) 1.1 k/uL (1.0-4.8); Lymphocytes % (A) 10 %; MCH 29.4 pg (25.0-35.0); MCHC 31.8 g/dL (31.0-37.0); MCV 92.4 fL (80.0-100.0); Mean Platelet Volume 6.7; Monocytes # (A) 0.9 k/uL (0-1.0); Monocytes % (A) 8 %; Neutrophils # (A) 8.7 k/uL (1.3-7.7); Neutrophils % (A) 79 %; Platelet Count 267 k/uL (150-450); RBC 5.28 m/uL (3.80-5.40)
[2024-03-19 21:58] LABS: ALT 75 U/L (4-34); AST 50 U/L (14-36); African American GFR (CKD) 58 (>60 ml/min/1.73 sqM); Albumin 5.2 g/dL (3.5-5.0); Alkaline Phosphatase 99 U/L (38-126); Anion Gap 12 mmol/L; Blood Urea Nitrogen 27 mg/dL (7-17); Calcium 12.1 mg/dL (8.4-10.2); Carbon Dioxide 19 mmol/L (22-30); Chloride 111 mmol/L (98-107); Glucose 109 mg/dL (74-99); Magnesium 2.1 mg/dL (1.6-2.3); Non-African American GFR(CKD) 50 (>60 ml/min/1.73 sqM); Phosphorus 4.4 mg/dL (2.5-4.5); Potassium 3.6 mmol/L (3.5-5.1); Sodium 142 mmol/L (137-145); Total Bilirubin 0.9 mg/dL (0.2-1.3); Total Protein 7.6 g/dL (6.3-8.2)
[2024-03-19 21:59] LABS: INR 0.9 (<1.2); Partial Thromboplastin Time 25.8 sec (22.0-30.0); Prothrombin Time 10.4 sec (10.0-12.5)
[2024-03-19 22:05] LABS: NT-Pro-B-Type Natriuretic Pept 239 pg/mL
[2024-03-19 23:45] LABS: Appearance,Urine Cloudy (Clear); Bacteria,Urine Occasional /hpf; Bilirubin,Urine Negative (Negative); Blood,Urine Small (Negative); Color,Urine Colorless; Glucose,Urine (UA) Negative (Negative); Hyaline Casts,Urine 6 /lpf (0-2); Ketones,Urine 1+ (Negative); Leukocyte Esterase,Urine Large (Negative); Mucus,Urine Occasional /hpf; Nitrite,Urine Negative (Negative); Protein,Urine Negative (Negative); RBC,Urine 27 /hpf (0-5); Specific Gravity,Urine 1.015 (1.001-1.035); Squamous Epithelial Cell,Urine 7 /hpf (0-4); Urobilinogen,Urine <2.0 mg/dL (<2.0); WBC,Urine >182 /hpf (0-5)
[2024-03-20] MEDS: ONDANSETRON 4 MG/2 ML VIAL IVP STA (00:35)
[2024-03-20] MEDS: SODIUM CHLORIDE 0.9% 1,000 ML IV STA ×2 (00:36→01:27)
[2024-03-20] MEDS ORDERED: NALOXONE 0.4 MG/ML 1 ML VIAL IV PRN (01:14)
--- NOTE | 2024-03-20 01:21 | CT ---
EXAM: CT Head Without Intravenous Contrast CLINICAL HISTORY: ITS.REASON CT Reason: dizzy TECHNIQUE: Axial computed tomography images of the head/brain without intravenous contrast. CTDI is 49.2 mGy and DLP is 1184.4 mGy-cm. This CT exam was performed using one or more of the following dose reduction techniques: automated exposure control, adjustment of the mA and/or kV according to patient size, and/or use of iterative reconstruction technique. COMPARISON: No relevant prior studies available. FINDINGS: No acute intracranial hemorrhage. No midline shift or mass effect. The territorial vera-white matter differentiation is maintained throughout. Age-related cerebral volume loss. Periventricular and subcortical white matter hypoattenuation, consistent with chronic microangiopathy. The visualized orbits appear grossly unremarkable. The calvarium is intact. The visualized paranasal sinuses and mastoid air cells are grossly clear. IMPRESSION: No acute intracranial hemorrhage, midline shift, or mass effect.
[2024-03-20] MEDS: ONDANSETRON 4 MG/2 ML VIAL IVP PRN (09:10)
--- NOTE | 2024-03-20 10:32 | P.HPIM ---
History of Present Illness H&P Date: 03/20/24 Karis Mueller, is a 78-year-old female who presented to [facility] emergency room with a chief complaint of nausea vomiting, generalized weakness and confusion with mental status changes. She was evaluated in the emergency room vital examination on presentation revealed a temperature of 97.9 pulse 92 respiration 18 blood pressure 155/91 pulse ox 100% on room air Laboratory data reveals a white blood count of 11.0 hemoglobin 15.5 platelet count 267 BUN 27 creatinine 1.06, AST 58 ALT 75 urine was cloudy with large leukocyte esterase and more than 182 white blood cells per high-power field Testing in the emergency room revealed CT scan of the brain without contrast was done in the emergency room and revealed no acute intracranial hemorrhage midline shift or mass effect, EKG was done and revealed sinus rhythm with first-degree AV block Patient was admitted to medical floor for further evaluation and treatment Past medical history is significant for history of asthma, history of TIA in 2021, history of decreased hearing with bilateral hearing aid, recent history of cataract surgery Past Medical History Past Medical History: Asthma, Hearing Disorder / Deafness Additional Past Medical History / Comment(s): 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 Bilateral hearing aid use. History of Any Multi-Drug Resistant Organisms: None Reported Past Surgical History: Hysterectomy, Tubal Ligation Additional Past Surgical History / Comment(s): Exploratory abdominal surgery. Past Anesthesia/Blood Transfusion Reactions: Previous Problems w/ Anesthesia Additional Past Anesthesia/Blood Transfusion Reaction / Comment(s): "Take a long tome to wake up". Past Psychological History: Bipolar Smoking Status: Never smoker Past Alcohol Use History: Occasional Past Drug Use History: None Reported - Past Family History Brother(s) Family Medical History: Cancer Medications and Allergies Home Medications Medication Instructions Recorded Confirmed Type ALPRAZolam [Xanax] 0.25 mg PO Q6H PRN 11/22/23 03/20/24 History D-Mannose 1,300 mg PO DAILY 11/22/23 03/20/24 History Gabapentin 600 mg PO HS 11/22/23 03/20/24 History Vit C/E/Zn/Coppr/Lutein/Zeaxan 1 cap PO BID 11/22/23 03/20/24 History [Preservision Areds 2 Softgel] Cariprazine HCl [Vraylar] 3 mg PO DAILY 03/20/24 03/20/24 History Vortioxetine Hydrobromide 10 mg PO DAILY 03/20/24 03/20/24 History [Trintellix] lamoTRIgine 100 mg PO DAILY 03/20/24 03/20/24 History Allergies Allergy/AdvReac Type Severity Reaction Status Date / Time No Known Allergies Allergy Verified 03/20/24 09:58 Physical Exam Vitals: Vital Signs Temp Pulse Pulse Resp BP BP Pulse Ox 03/20/24 02:12 98.1 F 85 17 139/79 96 03/20/24 01:41 75 16 133/81 03/19/24 23:00 81 16 169/89 98 03/19/24 20:10 97.9 F 92 18 155/91 100 Intake and Output 03/19/24 03/20/24 03/20/24 22:59 06:59 14:59 Intake Total 540 Balance 540 Intake: Intake, IV Titration 300 Amount Sodium Chloride 0.9% 1, 300 000 ml @ 75 mls/hr IV . [id number] STA Rx#:[id number] Oral 240 Other: Voiding Method Toilet # Voids 1 Weight 72.575 kg 72.575 kg In general patient is alert and oriented x 3 in no distress HEENT head normocephalic and atraumatic Neck is supple no JVD no goiter no lymphadenopathy no carotid bruit Chest examination is clear to auscultation no crackles no wheezing Cardiac exam reveals regular heart sounds S1 and S2 no gallops no murmurs Abdomen is soft nontender no organomegaly with normal bowel sounds Extremity exam reveals no edema no cyanosis or clubbing Neurological examination reveals no gross focal deficits Results CBC & Chem 7: 03/19/24 21:28 03/19/24 21:28 Labs: Abnormal Lab Results - Last 24 Hours (Table) 03/19/24 03/19/24 03/19/24 Range/Units 21:28 21:28 22:45 WBC 11.0 H (3.8-10.6) k/uL Hct 48.7 H (34.0-46.0) % Neutrophils # 8.7 H (1.3-7.7) k/uL Chloride 111 H (98-107) mmol/L Carbon Dioxide 19 L (22-30) mmol/L BUN 27 H (7-17) mg/dL Creatinine 1.06 H (0.52-1.04) mg/dL Glucose 109 H (74-99) mg/dL Calcium 12.1 H (8.4-10.2) mg/dL AST 50 H (14-36) U/L ALT 75 H (4-34) U/L Albumin 5.2 H (3.5-5.0) g/dL Urine Appearance Cloudy H (Clear) Urine Ketones 1+ H (Negative) Urine Blood Small H (Negative) Ur Leukocyte Esterase Large H (Negative) Urine RBC 27 H (0-5) /hpf Urine WBC >182 H (0-5) /hpf Urine WBC Clumps Moderate H (None) /hpf Ur Squamous Epith Cells 7 H (0-4) /hpf Urine Bacteria Occasional H (None) /hpf Hyaline Casts 6 H (0-2) /lpf Urine Mucus Occasional H (None) /hpf Thrombosis Risk Factor Assmnt - Choose All That Apply Any of the Below Risk Factors Present?: No Other Risk Factors: Yes Each Risk Factor Represents 3 Points: Age 75 years or older Thrombosis Risk Factor Assessment Total Risk Factor Score: 3 Thrombosis Risk Factor Assessment Level: Moderate Risk Assessment and Plan Plan: Sepsis as evidenced by elevated white blood count, mental status changes. Urinary tract infection Nausea vomiting and dehydration Acute kidney injury with elevated BUN and creatinine Elevated liver enzymes Underlying history of asthma stable at this time Underlying history of bilateral hearing loss At this time patient was admitted to medical floor Home medications reviewed and reordered Patient was started on IV ceftriaxone in the emergency room we will continue at this time Infectious disease consultation was requested For DVT prophylaxis subcu Lovenox
[2024-03-20] MEDS: VIT A,C & E-LUTEIN-MINERALS 1 EACH TAB PO SCH (20:28)
[2024-03-20] MEDS: GABAPENTIN 300 MG CAP PO SCH (20:28)
[2024-03-21 08:01] LABS: ALT 47 U/L (4-34); AST 34 U/L (14-36); African American GFR (CKD) 84 (>60 ml/min/1.73 sqM); Albumin/Globulin Ratio 1.8; Alkaline Phosphatase 73 U/L (38-126); Anion Gap 8 mmol/L; Blood Urea Nitrogen 14 mg/dL (7-17); Calcium 9.8 mg/dL (8.4-10.2); Carbon Dioxide 21 mmol/L (22-30); Chloride 112 mmol/L (98-107); Globulin 2.2 g/dL; Glucose 102 mg/dL (74-99); Non-African American GFR(CKD) 73 (>60 ml/min/1.73 sqM); Phosphorus 2.4 mg/dL (2.5-4.5); Potassium 3.6 mmol/L (3.5-5.1); Sodium 141 mmol/L (137-145); Total Bilirubin 0.8 mg/dL (0.2-1.3); Total Protein 6.2 g/dL (6.3-8.2)
[2024-03-21 08:05] LABS: Basophils % (A) 0 %; Eosinophils # (A) 0.1 k/uL (0-0.7); Eosinophils % (A) 1 %; HCT 42.9 % (34.0-46.0); HGB 13.8 gm/dL (11.4-16.0); Lymphocytes # (A) 1.4 k/uL (1.0-4.8); Lymphocytes % (A) 18 %; MCH 29.6 pg (25.0-35.0); MCHC 32.1 g/dL (31.0-37.0); MCV 92.2 fL (80.0-100.0); Mean Platelet Volume 6.6; Monocytes # (A) 0.7 k/uL (0-1.0); Monocytes % (A) 9 %; Neutrophils # (A) 5.5 k/uL (1.3-7.7); Neutrophils % (A) 70 %; Platelet Count 261 k/uL (150-450); RBC 4.65 m/uL (3.80-5.40); RDW 13.1 % (11.5-15.5); WBC 7.9 k/uL (3.8-10.6)
[2024-03-21 08:21] LABS: Magnesium 1.9 mg/dL (1.6-2.3)
--- NOTE | 2024-03-21 09:24 | P.CONS ---
History of Present Illness - Reason for Consult Consult date: 03/20/24 UTI, recent cataract surgery Requesting physician: Gaye Garza - Chief Complaint Weakness mental status changes x 1 day - History of Present Illness Patient is a 78-year-old female with a past medical history significant for hearing disorder asthma in this patient who recently did have a left cataract surgery presenting to the hospital complaining of generalized weakness nausea and vomiting had did have some mental status changes and confusion patient symptom has been going on for a day or 2 before presentation to the hospital patient denies high-grade fever or any chills denies pain to the left thigh or any blurriness of vision has been complaining of mostly nausea vomiting and diarrhea some suprapubic discomfort urinary frequency and burning on presentation to the hospital the patient was afebrile and no fever have been recorded subsequently patient was not tachycardic hypotensive or hypoxic did have a white count of 11,000 with a left shift BUN/creatinine was mildly elevated initially enzymes mildly elevated subsequent normalized he did have s ignificantly positive UA with large leukocyte esterase more than 1-2 WBC patient has been diagnosed with a UTI started on Rocephin infectious disease was consulted for further management of antibiotic therapy Review of Systems Positive point and negatives has been mentioned in the HPI, complete review of systems was performed and all other systems are negative Past Medical History Past Medical History: Asthma, Hearing Disorder / Deafness Additional Past Medical History / Comment(s): 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 Bilateral hearing aid use. History of Any Multi-Drug Resistant Organisms: None Reported Past Surgical History: Hysterectomy, Tubal Ligation Additional Past Surgical History / Comment(s): Exploratory abdominal surgery. Past Anesthesia/Blood Transfusion Reactions: Previous Problems w/ Anesthesia Additional Past Anesthesia/Blood Transfusion Reaction / Comm: "Take a long tome to wake up". Past Psychological History: Bipolar Smoking Status: Never smoker Past Alcohol Use History: Occasional Past Drug Use History: None Reported - Past Family History Brother(s) Family Medical History: Cancer Medications and Allergies Home Medications Medication Instructions Recorded Confirmed Type ALPRAZolam [Xanax] 0.25 mg PO Q6H PRN 11/22/23 03/20/24 History D-Mannose 1,300 mg PO DAILY 11/22/23 03/20/24 History Gabapentin 600 mg PO HS 11/22/23 03/20/24 History Vit C/E/Zn/Coppr/Lutein/Zeaxan 1 cap PO BID 11/22/23 03/20/24 History [Preservision Areds 2 Softgel] Cariprazine HCl [Vraylar] 3 mg PO DAILY 03/20/24 03/20/24 History Vortioxetine Hydrobromide 10 mg PO DAILY 03/20/24 03/20/24 History [Trintellix] lamoTRIgine 100 mg PO DAILY 03/20/24 03/20/24 History Allergies Allergy/AdvReac Type Severity Reaction Status Date / Time No Known Allergies Allergy Verified 03/20/24 09:58 Physical Exam Vitals: Vital Signs Temp Pulse Pulse Resp BP BP Pulse Ox 03/20/24 07:30 98.5 F 69 16 137/73 98 03/20/24 02:12 98.1 F 85 17 139/79 96 03/20/24 01:41 75 16 133/81 03/19/24 23:00 81 16 169/89 98 03/19/24 20:10 97.9 F 92 18 155/91 100 Intake and Output 03/19/24 03/20/24 03/20/24 22:59 06:59 14:59 Intake Total 540 Balance 540 Intake: Intake, IV Titration 300 Amount Sodium Chloride 0.9% 1, 300 000 ml @ 75 mls/hr IV . [id number] STA Rx#:[id number] Oral 240 Other: Voiding Method Toilet # Voids 1 Weight 72.575 kg 72.575 kg GENERAL DESCRIPTION: Elderly female up in wheelchair no distress. No tachypnea or accessory muscle of respiration use. HEENT: Shows Pallor , no scleral icterus, no erythema to the left eye or periorbital area was noticed, oral mucous membrane is dry. No pharyngeal erythema or thrush NECK: Trachea central, no thyromegaly. LUNGS: Unlabored breathing. Clear to auscultation anteriorly. No wheeze or crackle. HEART: S1, S2, regular rate and rhythm. No loud murmur ABDOMEN: Soft, no tenderness , guarding or rigidity, no organomegaly EXTREMITIES: No edema of feet. SKIN: No rash, no masses palpable. NEUROLOGICAL: The patient is awake, alert, oriented x3, mood and affect normal. Results CBC & Chem 7: 03/21/24 07:21 10/12/24 07:21 Labs: Abnormal Lab Results - Last 24 Hours (Table) 03/19/24 03/19/24 03/19/24 Range/Units 21:28 21:28 22:45 WBC 11.0 H (3.8-10.6) k/uL Hct 48.7 H (34.0-46.0) % Neutrophils # 8.7 H (1.3-7.7) k/uL Chloride 111 H (98-107) mmol/L Carbon Dioxide 19 L (22-30) mmol/L BUN 27 H (7-17) mg/dL Creatinine 1.06 H (0.52-1.04) mg/dL Glucose 109 H (74-99) mg/dL Calcium 12.1 H (8.4-10.2) mg/dL AST 50 H (14-36) U/L ALT 75 H (4-34) U/L Albumin 5.2 H (3.5-5.0) g/dL Urine Appearance Cloudy H (Clear) Urine Ketones 1+ H (Negative) Urine Blood Small H (Negative) Ur Leukocyte Esterase Large H (Negative) Urine RBC 27 H (0-5) /hpf Urine WBC >182 H (0-5) /hpf Urine WBC Clumps Moderate H (None) /hpf Ur Squamous Epith Cells 7 H (0-4) /hpf Urine Bacteria Occasional H (None) /hpf Hyaline Casts 6 H (0-2) /lpf Urine Mucus Occasional H (None) /hpf Assessment and Plan (1) UTI (urinary tract infection) Current Visit: Yes Status: Acute Code(s): N39.0 - URINARY TRACT INFECTION, SITE NOT SPECIFIED SNOMED Code(s): 46762020 Plan: 1patient presented to hospital with confusion mental status changes nausea vomiting diarrhea some lower abdominal discomfort did have elevated white count significantly positive UA likely representing symptomatic urinary tract infection from enteric gram-negative pathogen. 2patient recently did have a left cataract surgery but no evidence of any erythema to the eyeball or periorbital area, no evidence of surgical site infe ction and clinically 3patient will be treated with Rocephin 2 g daily while waiting for the culture to finalize We will follow on clinical condition and cultures to further adjust medication if needed Thank you for this consultation we will follow the patient along with you Dictation was produced using [employer] software. please excuse any grammatical, word or spelling errors. Time with Patient: Greater than 30
[2024-03-21] MEDS: ENOXAPARIN 40 MG/0.4 ML SYRINGE SQ SCH (09:30)
[2024-03-21] MEDS: lamoTRIgine 100 MG TAB PO SCH (09:31)
[2024-03-21] MEDS: VORTIOXETINE HYDROBROMIDE 20 MG TABLET PO SCH (09:31)
[2024-03-21] MEDS: PATIENT'S OWN (Cariprazine Hcl [Vraylar] 3 MG Capsule) PO SCH (09:34)
--- NOTE | 2024-03-21 13:34 | P.PN ---
Subjective Progress Note Date: 03/21/24 Karis Mueller, is a 78-year-old female who presented to emergency room with a chief complaint of nausea vomiting, generalized weakness and confusion with mental status changes. She was evaluated in the emergency room vital examination on presentation revealed a temperature of 97.9 pulse 92 respiration 18 blood pressure 155/91 pulse ox 100% on room air Laboratory data reveals a white blood count of 11.0 hemoglobin 15.5 platelet count 267 BUN 27 creatinine 1.06, AST 58 ALT 75 urine was cloudy with large leukocyte esterase and more than 182 white blood cells per high-power field Testing in the emergency room revealed CT scan of the brain without contrast was done in the emergency room and revealed no acute intracranial hemorrhage midline shift or mass effect, EKG was done and revealed sinus rhythm with first-degree AV block Patient was admitted to medical floor for further evaluation and treatment Past medical history is significant for history of asthma, history of TIA in 2021, history of decreased hearing with bilateral hearing aid, recent history of cataract surgery On 03/21/2024 patient was seen and examined on the medical floor, she is alert and oriented x 3 in no apparent distress, there is no fever or chills no headache or dizziness no chest pain no shortness of breath no cough no nausea or vomiting no abdominal pain no diarrhea no blood in the stools she is still having some discomfort with urination and frequency with urination otherwise no hematuria. Kidney function is improving, will continue with current management possible discharge in the next 1 to 2 days awaiting urine culture results. Objective - Vital Signs Vital signs: Vital Signs Temp 97.5 F L 03/21/24 07:26 Pulse 59 L 03/21/24 07:26 Resp 18 03/21/24 07:26 BP 155/84 03/21/24 07:26 Pulse Ox 98 03/21/24 07:26 FiO2 Intake & Output 03/20/24 03/21/24 03/21/24 18:59 06:59 18:59 Intake Total 590 Balance 590 Intake: Oral 590 Other: Voiding Method Toilet Toilet # Voids 1 2 - Exam In general patient is alert and oriented x 3 in no distress HEENT head normocephalic and atraumatic Neck is supple no JVD no goiter no lymphadenopathy no carotid bruit Chest examination is clear to auscultation no crackles no wheezing Cardiac exam reveals regular heart sounds S1 and S2 no gallops no murmurs Abdomen is soft nontender no organomegaly with normal bowel sounds Extremity exam reveals no edema no cyanosis or clubbing Neurological examination reveals no gross focal deficits - Labs CBC & Chem 7: 03/21/24 07:21 03/21/24 07:21 Labs: Abnormal Lab Results - Last 24 Hours (Table) 03/21/24 Range/Units 07:21 Chloride 112 H (98-107) mmol/L Carbon Dioxide 21 L (22-30) mmol/L Glucose 102 H (74-99) mg/dL Phosphorus 2.4 L (2.5-4.5) mg/dL ALT 47 H (4-34) U/L Total Protein 6.2 L (6.3-8.2) g/dL Assessment and Plan Plan: Sepsis as evidenced by elevated white blood count, mental status changes. Urinary tract infection Nausea vomiting and dehydration Acute kidney injury with elevated BUN and creatinine Elevated liver enzymes Underlying history of asthma stable at this time Underlying history of bilateral hearing loss At this time patient was admitted to medical floor Home medications reviewed and reordered Patient was started on IV ceftriaxone in the emergency room we will continue at this time Infectious disease consultation was requested For DVT prophylaxis subcu Lovenox
--- NOTE | 2024-03-21 15:08 | P.PN ---
Subjective Progress Note Date: 03/21/24 Principal diagnosis: Reason for follow-up is a urinary tract infection Patient is a 78-year-old female with a past medical history significant for hearing disorder asthma in this patient who recently did have a left cataract surgery presenting to the hospital complaining of generalized weakness nausea and mental status changes has been diagnosed with symptomatic urinary tract infection. On today's evaluation that is 03/21/2024,the patient denies any fever or any ch ills, patient is breathing comfortably on room air, the patient denies chest pain shortness of breath and no significant cough, patient denies abdominal pain, no nausea vomiting or diarrhea. The patient white count normalized to 7.8, creatinine 0.78 blood urine cultures currently pending Objective - Vital Signs Vital signs: Vital Signs Temp 98.0 F 03/21/24 13:34 Pulse 84 03/21/24 13:34 Resp 17 03/21/24 13:34 BP 143/80 03/21/24 13:34 Pulse Ox 99 03/21/24 13:34 FiO2 Intake & Output 03/20/24 03/21/24 03/21/24 18:59 06:59 18:59 Intake Total 590 Balance 590 Intake: Oral 590 Other: Voiding Method Toilet Toilet Toilet # Voids 1 2 2 - Exam GENERAL DESCRIPTION: An elderly female up in the chair in no distress RESPIRATORY SYSTEM: Unlabored breathing , decreased breath sounds at bases HEART: S1 S2 regular rate and rhythm , ABDOMEN: Soft , no tenderness EXTREMITIES: No edema feet - Labs CBC & Chem 7: 03/21/24 07:21 03/21/24 07:21 Labs: Abnormal Lab Results - Last 24 Hours (Table) 03/21/24 Range/Units 07:21 Chloride 112 H (98-107) mmol/L Carbon Dioxide 21 L (22-30) mmol/L Glucose 102 H (74-99) mg/dL Phosphorus 2.4 L (2.5-4.5) mg/dL ALT 47 H (4-34) U/L Total Protein 6.2 L (6.3-8.2) g/dL Microbiology - Last 24 Hours (Table) 03/20/24 00:51 Blood Culture - Preliminary Blood Assessment and Plan (1) UTI (urinary tract infection) Current Visit: Yes Status: Acute Code(s): N39.0 - URINARY TRACT INFECTION, SITE NOT SPECIFIED SNOMED Code(s): 82548193 Plan: 1patient presented to hospital with confusion mental status changes nausea vomiting diarrhea some lower abdominal discomfort did have elevated white count significantly positive UA likely representing symptomatic urinary tract infection from enteric gram-negative pathogen. 2patient recently did have a left cataract surgery but no evidence of any emily thema to the eyeball or periorbital area, no evidence of surgical site infection and clinically 3patient did have normalization of the white count culture currently pending continue with Rocephin while waiting for the culture to finalize Dictation was produced using [employer] dictation software. please excuse any grammatical, word or spelling errors. Time with Patient: Less than 30
[2024-03-22] MEDS: ALPRAZolam 0.25 MG TAB PO PRN (00:02)
[2024-03-22 09:47] LABS: Basophils # (A) 0.05 X 10*3/uL (0.00-0.10); Basophils % (A) 0.8 %; Eosinophils # (A) 0.14 X 10*3/uL (0.04-0.35); Eosinophils % (A) 2.3 %; HCT 37.5 % (37.2-46.3); HGB 12.6 g/dL (12.0-15.0); Lymphocytes # (A) 1.24 X 10*3/uL (0.90-5.00); Lymphocytes % (A) 20.2 %; MCH 29.2 pg (27.0-32.0); MCHC 33.6 g/dL (32.0-37.0); Mean Platelet Volume 9.4 FL (9.5-12.2); Monocytes # (A) 0.65 X 10*3/uL (0.20-1.00); Monocytes % (A) 10.6 %; NRBC Per 100 WBC 0 X 10*3/uL (0.00-0.01); Neutrophils # (A) 4.05 X 10*3/uL (1.80-7.70); Neutrophils % (A) 65.8 %; Platelet Count 239 X 10*3/uL (140-440); RBC 4.31 X 10*6/uL (4.10-5.20); RDW 13.1 % (11.5-14.5); WBC 6.15 X 10*3/uL (4.50-10.00)
--- NOTE | 2024-03-22 09:49 | P.PN ---
Subjective Progress Note Date: 03/22/24 Karis Mueller, is a 78-year-old female who presented to [facility] emergency room with a chief complaint of nausea vomiting, generalized weakness and confusion with mental status changes. She was evaluated in the emergency room vital examination on presentation revealed a temperature of 97.9 pulse 92 respiration 18 blood pressure 155/91 pulse ox 100% on room air Laboratory data reveals a white blood count of 11.0 hemoglobin 15.5 platelet count 267 BUN 27 creatinine 1.06, AST 58 ALT 75 urine was cloudy with large leukocyte esterase and more than 182 white blood cells per high-power field Testing in the emergency room revealed CT scan of the brain without contrast was done in the emergency room and revealed no acute intracranial hemorrhage midline shift or mass effect, EKG was done and revealed sinus rhythm with first-degree AV block Patient was admitted to medical floor for further evaluation and treatment Past medical history is significant for history of asthma, history of TIA in 2021, history of decreased hearing with bilateral hearing aid, recent history of cataract surgery On 03/21/2024 patient was seen and examined on the medical floor, she is alert and oriented x 3 in no apparent distress, there is no fever or chills no headache or dizziness no chest pain no shortness of breath no cough no nausea or vomiting no abdominal pain no diarrhea no blood in the stools she is still having some discomfort with urination and frequency with urination otherwise no hematuria. Kidney function is improving, will continue with current management possible discharge in the next 1 to 2 days awaiting urine culture results. On 03/22/2024 patient is alert and oriented x 3. Patient reports improvement with weakness and discomfort. Patient remains on IV Rocephin awaiting final culture prior to discharge. Infectious disease services following. Patient remains on IV Rocephin. Current vital signs temp 98.0, heart rate 62, respiratory rate 16, blood pressure 137/73 with a pulse ox of 99% on room air Objective - Vital Signs Vital signs: Vital Signs Temp 98.0 F 03/22/24 07:23 Pulse 62 03/22/24 07:23 Resp 16 03/22/24 07:23 BP 137/73 03/22/24 07:23 Pulse Ox 99 03/22/24 07:23 FiO2 Intake & Output 03/21/24 03/22/24 03/22/24 18:59 06:59 18:59 Intake Total 540 590 Balance 540 590 Intake: Oral 540 590 Other: Voiding Method Toilet Toilet # Voids 2 1 - Exam In general patient is alert and oriented x 3 in no distress HEENT head normocephalic and atraumatic Neck is supple no JVD no goiter no lymphadenopathy no carotid bruit Chest examination is clear to auscultation no crackles no wheezing Cardiac exam reveals regular heart sounds S1 and S2 no gallops no murmurs Abdomen is soft nontender no organomegaly with normal bowel sounds Extremity exam reveals no edema no cyanosis or clubbing Neurological examination reveals no gross focal deficits - Labs CBC & Chem 7: 03/22/24 06:05 03/21/24 07:21 Labs: Abnormal Lab Results - Last 24 Hours (Table) 03/22/24 Range/Units 06:05 MPV 9.4 L (9.5-12.2) FL Microbiology - Last 24 Hours (Table) 03/20/24 00:51 Blood Culture - Preliminary Blood Assessment and Plan Plan: Sepsis as evidenced by elevated white blood count, mental status changes. Urinary tract infection Nausea vomiting and dehydration Acute kidney injury with elevated BUN and creatinine Elevated liver enzymes Underlying history of asthma stable at this time Underlying history of bilateral hearing loss At this time patient was admitted to medical floor Home medications reviewed and reordered Patient was started on IV ceftriaxone in the emergency room we will continue at this time Infectious disease consultation was requested For DVT prophylaxis subcu Lovenox
[2024-03-22 10:19] LABS: ALT 61 U/L (8-44); AST 45 U/L (13-35); Albumin 3.8 g/dL (3.8-4.9); Albumin/Globulin Ratio 2.38 Ratio (1.60-3.17); Alkaline Phosphatase 75 U/L (41-126); BUN/Creat Ratio 20.43 Ratio (12.00-20.00); Blood Urea Nitrogen 14.3 mg/dL (9.0-27.0); Calcium 9.6 mg/dL (8.7-10.3); Carbon Dioxide 21.2 mmol/L (21.6-31.8); Chloride 110 mmol/L (96-109); Globulin 1.6 g/dL (1.6-3.3); Glucose 105 mg/dL (70-110); Potassium 3.7 mmol/L (3.5-5.5); Sodium 141 mmol/L (135-145); Total Bilirubin 0.4 mg/dL (0.3-1.2); Total Protein 5.4 g/dL (6.2-8.2)
--- NOTE | 2024-03-22 15:54 | P.PN ---
Subjective Progress Note Date: 03/22/24 Principal diagnosis: Reason for follow-up is a urinary tract infection Patient is a 78-year-old female with a past medical history significant for hearing disorder asthma in this patient who recently did have a left cataract surgery presenting to the hospital complaining of generalized weakness nausea and mental status changes has been diagnosed with symptomatic urinary tract infection. On today's evaluation that is 03/22/2024,the patient remains to be afebrile, roopa medina is on room air not requiring supplemental oxygen and denies any shortness of breath no chest pain or cough.Patient denies having any nausea or vomiting, no abdominal pain and no diarrhea has been reported, did have improvement in her urinary symptoms mention feeling better. Patient white count 6.15, creatinine 0.7 Objective - Vital Signs Vital signs: Vital Signs Temp 97.8 F 03/22/24 13:57 Pulse 70 03/22/24 13:57 Resp 16 03/22/24 13:57 BP 161/94 03/22/24 13:57 Pulse Ox 99 03/22/24 13:57 FiO2 Intake & Output 03/21/24 03/22/24 03/22/24 18:59 06:59 18:59 Intake Total 540 590 Balance 540 590 Intake: Oral 540 590 Other: Voiding Method Toilet Toilet Toilet # Voids 2 1 - Exam GENERAL DESCRIPTION: An elderly female up in the chair in no distress RESPIRATORY SYSTEM: Unlabored breathing , decreased breath sounds at bases HEART: S1 S2 regular rate and rhythm , ABDOMEN: Soft , no tenderness EXTREMITIES: No edema feet - Labs CBC & Chem 7: 03/22/24 06:05 03/22/24 06:10 Labs: Abnormal Lab Results - Last 24 Hours (Table) 03/22/24 03/22/24 Range/Units 06:05 06:10 MPV 9.4 L (9.5-12.2) FL Chloride 110 H (96-109) mmol/L Carbon Dioxide 21.2 L (21.6-31.8) mmol/L BUN/Creatinine Ratio 20.43 H (12.00-20.00) Ratio AST 45 H (13-35) U/L ALT 61 H (8-44) U/L Total Protein 5.4 L (6.2-8.2) g/dL Microbiology - Last 24 Hours (Table) 03/20/24 00:51 Blood Culture - Preliminary Blood Assessment and Plan (1) UTI (urinary tract infection) Current Visit: Yes Status: Acute Code(s): N39.0 - URINARY TRACT INFECTION, SITE NOT SPECIFIED SNOMED Code(s): 23921678 Plan: 1patient presented to hospital with confusion mental status changes nausea vomiting diarrhea some lower abdominal discomfort did have elevated white count significantly positive UA likely representing symptomatic urinary tract infection from enteric gram-negative pathogen. 2patient recently did have a left cataract surgery but no evidence of any erythema to the eyeball or periorbital area, no evidence of surgical site infection and clinically 3patient did have normalization of the white count blood culture have been negative unfortunately no urine culture done on admission keeping in mind improvement on Rocephin to continue and consider short course of oral Ceftin on discharge at the bedside questions answered Dictation was produced using [employer] dictation software. please excuse any grammatical, word or spelling errors. Time with Patient: Less than 30
[2024-03-23 07:52] VITALS: RESP 16
[2024-03-23 08:35] LABS: Basophils # (A) 0.04 X 10*3/uL (0.00-0.10); Basophils % (A) 0.6 %; Eosinophils # (A) 0.15 X 10*3/uL (0.04-0.35); Eosinophils % (A) 2.3 %; HCT 36.1 % (37.2-46.3); HGB 12.3 g/dL (12.0-15.0); Lymphocytes % (A) 22.6 %; MCH 30.1 pg (27.0-32.0); MCHC 34.1 g/dL (32.0-37.0); MCV 88.3 FL (80.0-97.0); Mean Platelet Volume 9.9 FL (9.5-12.2); Monocytes # (A) 0.59 X 10*3/uL (0.20-1.00); Monocytes % (A) 8.9 %; NRBC Per 100 WBC 0 X 10*3/uL (0.00-0.01); Neutrophils # (A) 4.35 X 10*3/uL (1.80-7.70); Neutrophils % (A) 65.3 %; Platelet Count 225 X 10*3/uL (140-440); RBC 4.09 X 10*6/uL (4.10-5.20); WBC 6.65 X 10*3/uL (4.50-10.00)
[2024-03-23 08:45] LABS: BUN/Creat Ratio 22.75 Ratio (12.00-20.00); Blood Urea Nitrogen 18.2 mg/dL (9.0-27.0); Chloride 110 mmol/L (96-109); Glucose 99 mg/dL (70-110); Potassium 3.6 mmol/L (3.5-5.5); Sodium 142 mmol/L (135-145)
[2024-03-23 08:46] LABS: ALT 63 U/L (8-44); AST 40 U/L (13-35); Albumin 3.8 g/dL (3.8-4.9); Albumin/Globulin Ratio 2.71 Ratio (1.60-3.17); Alkaline Phosphatase 72 U/L (41-126); Calcium 9.4 mg/dL (8.7-10.3); Carbon Dioxide 22.7 mmol/L (21.6-31.8); Globulin 1.4 g/dL (1.6-3.3); Total Bilirubin 0.3 mg/dL (0.3-1.2); Total Protein 5.2 g/dL (6.2-8.2)
[2024-03-23 12:38] VITALS: TEMP 97.5
--- NOTE | 2024-03-23 12:51 | P.PN ---
Subjective Progress Note Date: 03/23/24 Principal diagnosis: Reason for follow-up is a urinary tract infection Patient is a 78-year-old female with a past medical history significant for hearing disorder asthma in this patient who recently did have a left cataract surgery presenting to the hospital complaining of generalized weakness nausea and mental status changes has been diagnosed with symptomatic urinary tract infection. On today's evaluation that is 03/23/2024, the patient continues to be afebrile, the patient is on room air and breathing comfortably, the Pt denies having any chest pain or cough, the patient denies having any abdominal pain no vomiting or any diarrhea, mention feeling better wants to go home. Patient white count 6.65, creatinine 0.8 Objective - Vital Signs Vital signs: Vital Signs Temp 97.7 F 03/23/24 07:07 Pulse 70 03/23/24 07:07 Resp 16 03/23/24 07:07 BP 155/88 03/23/24 07:07 Pulse Ox 99 03/23/24 07:07 FiO2 Intake & Output 03/22/24 03/23/24 03/23/24 18:59 06:59 18:59 Intake Total 780 540 Balance 780 540 Intake: Oral 780 540 Other: Voiding Method Toilet Toilet - Exam GENERAL DESCRIPTION: An elderly female up in the chair in no distress RESPIRATORY SYSTEM: Unlabored breathing , decreased breath sounds at bases HEART: S1 S2 regular rate and rhythm , ABDOMEN: Soft , no tenderness EXTREMITIES: No edema feet - Labs CBC & Chem 7: 03/23/24 04:18 03/23/24 04:18 Labs: Abnormal Lab Results - Last 24 Hours (Table) 03/23/24 03/23/24 Range/Units 04:18 04:18 RBC 4.09 L (4.10-5.20) X 10*6/uL Hct 36.1 L (37.2-46.3) % Chloride 110 H (96-109) mmol/L BUN/Creatinine Ratio 22.75 H (12.00-20.00) Ratio AST 40 H (13-35) U/L ALT 63 H (8-44) U/L Total Protein 5.2 L (6.2-8.2) g/dL Globulin 1.4 L (1.6-3.3) g/dL Microbiology - Last 24 Hours (Table) 03/20/24 00:51 Blood Culture - Preliminary Blood Assessment and Plan (1) UTI (urinary tract infection) Current Visit: Yes Status: Acute Code(s): N39.0 - URINARY TRACT INFECTION, SITE NOT SPECIFIED SNOMED Code(s): 50584018 Plan: 1patient presented to hospital with confusion mental status changes nausea vomiting diarrhea some lower abdominal discomfort did have elevated white count significantly positive UA likely representing symptomatic urinary tract infection from enteric gram-negative pathogen. 2patient recently did have a left cataract surgery but no evidence of any erythema to the eyeball or periorbital area, no evidence of surgical site infection and clinically 3patient did have normalization of the white count blood culture have been negative unfortunately no urine culture done on admission 4keeping in mind improvement on the Rocephin will consider short course of oral Ceftin on discharge prescription sent to the pharmacy Dictation was produced using [employer] dictation software. please excuse any grammatical, word or spelling errors. Time with Patient: Less than 30
[2024-03-23 14:48] VITALS: BP 153/97; PULSE 79
--- NOTE | 2024-03-23 16:36 | P.DS ---
Providers Date of admission: 03/20/24 01:14 Expected date of discharge: 03/23/24 Attending physician: Gaye Garza Consults: 03/20/24 10:32 Consult Physician Routine Consulting Provider: Ben Charles Consult Reason/Comments: Sepsis urinary tract infection, recent cataract surgery Do you want consulting provider notified?: Yes Primary care physician: Rabia Ponce Hospital Course: Diagnosis on discharge: Sepsis as evidenced by elevated white blood count, mental status changes. Urinary tract infection Nausea vomiting and dehydration Acute kidney injury with elevated BUN and creatinine Elevated liver enzymes Underlying history of asthma stable at this time Underlying history of bilateral hearing loss Hospital course: Karis Mueller, is a 78-year-old female who presented to [facility] emergency room with a chief complaint of nausea vomiting, generalized weakness and confusion with mental status changes. She was evaluated in the emergency room vital examination on presentation revealed a temperature of 97.9 pulse 92 respiration 18 blood pressure 155/91 pulse ox 100% on room air Laboratory data reveals a white blood count of 11.0 hemoglobin 15.5 platelet count 267 BUN 27 creatinine 1.06, AST 58 ALT 75 urine was cloudy with large leukocyte esterase and more than 182 white blood cells per high-power field Testing in the emergency room revealed CT scan of the brain without contrast was done in the emergency room and revealed no acute intracranial hemorrhage midline shift or mass effect, EKG was done and revealed sinus rhythm with first-degree AV block Patient was admitted to medical floor for further evaluation and treatment Past medical history is significant for history of asthma, history of TIA in 2021, history of decreased hearing with bilateral hearing aid, recent history of cataract surgery On 03/21/2024 patient was seen and examined on the medical floor, she is alert and oriented x 3 in no apparent distress, there is no fever or chills no headache or dizziness no chest pain no shortness of breath no cough no nausea or vomiting no abdominal pain no diarrhea no blood in the stools she is still having some discomfort with urination and frequency with urination otherwise no hematuria. Kidney function is improving, will continue with current management possible discharge in the next 1 to 2 days awaiting urine culture results. On 03/22/2024 patient is alert and oriented x 3. Patient reports improvement with weakness and discomfort. Patient remains on IV Rocephin awaiting final culture prior to discharge. Infectious disease services following. Patient remains on IV Rocephin. Current vital signs temp 98.0, heart rate 62, respiratory rate 16, blood pressure 137/73 with a pulse ox of 99% on room air On 03/23/2024 patient was seen and examined on the medical floor she is alert and oriented x 3 in no apparent distress there is no fever or chills no headache or dizziness no chest pain no shortness of breath no cough no nausea or vomiting no abdominal pain no diarrhea and no urinary symptoms. Blood pressure is slightly elevated however, patient denies any previous history of elevated blood pressure she is not on any medication for hypertension, patient states that she is anxious and requesting a prescription for Xanax, she will follow-up with Dr. Momin in regard to blood pressure readings. She was given a prescription for Ceftin and Xanax at the time of discharge Patient Condition at Discharge: Fair Plan - Discharge Summary Discharge Rx Participant: Yes New Discharge Prescriptions: New cefUROXime axetiL [Ceftin] 500 mg PO BID #14 tab Continue ALPRAZolam [Xanax] 0.25 mg PO Q6H PRN PRN Reason: Anxiety Vit C/E/Zn/Coppr/Lutein/Zeaxan [Preservision Areds 2 Softgel] 1 cap PO BID Gabapentin 600 mg PO HS Cariprazine HCl [Vraylar] 3 mg PO DAILY lamoTRIgine 100 mg PO DAILY Vortioxetine Hydrobromide [Trintellix] 10 mg PO DAILY Discontinued D-Mannose 1,300 mg PO DAILY Discharge Medication List ALPRAZolam [Xanax] 0.25 mg PO Q6H PRN 11/22/23 [History] Gabapentin 600 mg PO HS 11/22/23 [History] Vit C/E/Zn/Coppr/Lutein/Zeaxan [Preservision Areds 2 Softgel] 1 cap PO BID 11/22/23 [History] Cariprazine HCl [Vraylar] 3 mg PO DAILY 03/20/24 [History] Vortioxetine Hydrobromide [Trintellix] 10 mg PO DAILY 03/20/24 [History] lamoTRIgine 100 mg PO DAILY 03/20/24 [History] cefUROXime axetiL [Ceftin] 500 mg PO BID #14 tab 03/23/24 [Rx] Follow up Appointment(s)/Referral(s): Rabia Ponce MD [Primary Care Provider] - 03/30/24 11:00 am Patient Instructions/Handouts: Cefuroxime (By mouth), Alprazolam (By mouth), Dehydration (DC), Urinary Tract Infection in Women (DC), Dizziness (ED)
== END 2024-03-23 17:03 | disposition home or self-care (01) | DRG 872 ==
LOC: EC 20:03 → 5NMEDONC 03-20 01:14
PROVIDERS: ADMIT Internal Medicine; ATTEND Internal Medicine
DX: A41.9 Sepsis, unspecified organism (principal); N39.0 Urinary tract infection, site not specified; N17.9 Acute kidney failure, unspecified; E86.0 Dehydration; J45.909 Unspecified asthma, uncomplicated; H91.93 Unspecified hearing loss, bilateral; I44.0 Atrioventricular block, first degree; R74.8 Abnormal levels of other serum enzymes; Z79.899 Other long term (current) drug therapy; Z86.73 Personal history of transient ischemic attack (TIA), and cerebral infarction without residual deficits; Z90.710 Acquired absence of both cervix and uterus; Z98.51 Tubal ligation status; Z98.890 Other specified postprocedural states
CPT/HCPCS: 36415; 70450; 80053; 81001; 83605; 83735; 83880; 84100; 84484; 85025; 85610; 85730; 87040; 93005; 96361; 96374; 96375; 99285